=== PATIENT | male | born 1940 | race Caucasian/White ===

== ENCOUNTER 2022-04-11 08:10 | Outpatient (CLI) | payer MEDICARE, OTHER, SELFPAY ==
--- NOTE | 2022-04-11 | USCV_ITS ---
Aung Whyte Age: 81 Gender: M : 1940 Exam Date: 04/11/2022 09:15 Ordering Phys: Bro Adrian MD Technologist: Anant Gomez Exam Location: [facility] Indication: atherosclerotic heart disease BP: 156 / 100 HR: 62 Rhythm: Sinus Technical Quality: Adequate MEASUREMENTS (Male / Female) Normal Values 2D ECHO LV Diastolic Diameter PLAX 5.3 cm 4.2 - 5.9 / 3.9 - 5.3 cm LV Systolic Diameter PLAX 5.1 cm IVS Diastolic Thickness 1.0 cm 0.6 - 1.0 / 0.6 - 0.9 cm IVS Systolic Thickness 1.1 cm LVPW Diastolic Thickness 1.4 cm 0.6 - 1.0 / 0.6 - 0.9 cm LVPW Systolic Thickness 1.4 cm LVOT Diameter 2.0 cm LV Ejection Fraction 2D Teich 10.9 % LV Ejection Fraction MOD 2C 15.5 % LV Ejection Fraction 2C AL 15.3 % LA Diameter 4.8 cm LA Width 3.6 cm LA Height 5.9 cm RA Width 3.3 cm RA Height 5.6 cm Aorta at Sinotubular Diameter 2.4 cm IVC Diameter 2.4 cm M-MODE Aortic Annulus Diameter 3.2 cm LA Ao Ratio MM 1.6 MV E Point Septal Separation 2.8 cm DOPPLER AV Peak Velocity 108.0 cm/s LVOT Peak Velocity 57.0 cm/s AV Area Cont Eq vti 1.3 cm squared AV Area Cont Eq pk 1.7 cm squared MV Peak Velocity 99.0 cm/s MV Area PHT 5.4 cm squared Mitral E to A Ratio 2.9 MV E' Velocity 37.0 cm/s Mitral E to MV E' Ratio 19.0 Mitral E to LV E' Lateral Ratio 16.4 Mitral E to LV E' Septal Ratio 23.1 TR Peak Velocity 357.4 cm/s TR Peak Gradient 51.1 mmHg TR Mean Velocity 245.2 cm/s TR Mean Gradient 26.9 mmHg TR Velocity Time Integral 108.7 cm Right Atrial Pressure 8.0 mmHg Pulmonary Artery Systolic Pressu 59.1 mmHg PV Peak Velocity 61.0 cm/s RV Acceleration Time 0.1 s RV Ejection Time 0.3 s RV AcT/ET 0.2 FINDINGS Left Ventricle Mildly dilated left ventricular size. Severely decreased left ventricular systolic function. Left ventricular ejection fraction is estimated at 20 %. Severe global left ventricular hypokinesis. Abnormal diastolic function (restrictive filling pattern) with severely elevated filling pressures. Right Ventricle Upper normal right ventricular size and mildly decreased systolic function. Right ventricular systolic pressure 66 mmHg. Right Atrium Normal right atrial size. Left Atrium Moderately increased left atrial size. Mitral Valve Moderate mitral annular calcification. Mildly thickened mitral valve. No mitral valve stenosis. Trace mitral valve regurgitation. Aortic Valve Aortic valve not well visualized. No aortic valve stenosis. Mild aortic valve regurgitation. Tricuspid Valve Structurally normal tricuspid valve. Mild tricuspid valve regurgitation. Pulmonic Valve Pulmonic valve not well visualized. No pulmonary valve stenosis. Mild pulmonary valve regurgitation. Pericardium No pericardial effusion. Aorta Normal size aortic root and proximal ascending aorta. IVC Dilated IVC with normal respiratory variation. CONCLUSIONS 1. Mildly dilated left ventricular size. Severely decreased left ventricular systolic function. Left ventricular ejection fraction is estimated at 20 %. Severe global left ventricular hypokinesis. Abnormal diastolic function (restrictive filling pattern) with severely elevated filling pressures. 2. Upper normal right ventricular size and mildly decreased systolic function. 3. Severe pulmonary hypertension with pulmonary pressure estimated at 66 mmHg. 4. Mild aortic and tricuspid valve regurgitation. 5. No prior similar studies to compare. Abigail Jefferson MD (Electronically Signed) Final Date: 11 April 2022 10:35 S
== END 2022-04-11 08:11 | disposition home or self-care (01) ==
LOC: RAD 08:10
PROVIDERS: PCP Family Medicine; Visit Provider Family Medicine
DX: I25.10 Atherosclerotic heart disease of native coronary artery without angina pectoris (principal); I27.20 Pulmonary hypertension, unspecified; I08.2 Rheumatic disorders of both aortic and tricuspid valves
CPT/HCPCS: 93306

== ENCOUNTER 2022-05-22 18:17 | Emergency (ER) | payer MEDICARE, OTHER, SELFPAY ==
[2022-05-22 18:43] VITALS: BP 158/93; PULSE 68; RESP 16; TEMP 35.8; O2SAT 98
[2022-05-22 19:17] LABS: Basophils % 0.1 %; Eosinophils # 0.1 10^3/uL (0.0-0.8); Eosinophils % 1.2 %; Hematocrit 42.6 % (42.0-52.0); Hemoglobin 14.2 g/dL (11.7-16.6); Lymphocytes # 0.9 10^3/uL (0.8-4.8); Lymphocytes % 10.1 %; Mean Corpuscular HGB Conc 33.3 g/dL (30.0-36.0); Mean Corpuscular Hemoglobin 29.8 pg (28.0-34.0); Mean Corpuscular Volume 89.3 fl (80-94); Monocytes # 0.9 10^3/uL (0.2-0.9); Monocytes % 9.4 %; Neutrophils # 7.19 10^3/uL (1.8-7.7); Neutrophils % 78.8 %; Nucleated Red Blood Cells % 0 %; Platelet Count 175 10^3/cmm (130-400); Red Blood Count 4.77 10^6/uL (4.1-5.3); Red Cell Distribution Width 15.4 % (12.1-15.1); White Blood Count 9.1 10^3/uL (4.0-10.0)
[2022-05-22 19:32] LABS: Alanine Aminotransferase 13 U/L (0-41); Albumin Level 3.4 g/dL (3.5-5.2); Alkaline Phosphatase 94 U/L (40-130); Anion Gap 13.6 (5-19); Aspartate Amino Transferase 12 U/L (0-40); Blood Urea Nitrogen 16 mg/dL (8-23); Calcium 9.2 mg/dL (8.5-10.5); Carbon Dioxide 25 mmol/L (22-29); Chloride 104 mmol/L (98-107); Globulin 3.3 g/dL (1.3-4.6); Glucose 140 mg/dL (65-115); Lipase 33 U/L (13-60); Osmolality Calculated 291 mOsm/kg (285-295); Potassium 3.6 mmol/L (3.5-5.1); Sodium 139 mmol/L (136-145); Total Bilirubin 1.4 mg/dL (0.15-1.2); Total Protein 6.7 g/dL (6.6-8.7)
--- NOTE | 2022-05-22 20:59 | W.ED.ABDPA2 ---
HPI - Abdominal Pain General: Chief Complaint: Abdominal Pain Stated Complaint: Hernia Pain Time Seen by Provider: 05/22/22 20:59 History of Present Illness: Mr. Whyte is a 81-year-old gentleman with significant past medical history of heart failure with reduced ejection fraction presenting to the emergency department due to abdominal pain. He reports longstanding history of umbilical/periumbilical hernia which intermittently would be more prominent however was typically easily reduced. Patient notes increased pain and not reducibility over the past 8 hours. Denies specific provoking event. No nausea, vomiting, changes of bowel movements. Denies other signs systemic illness. Intensity symptoms is moderate to severe. Course is worsened. Worse with palpation and movement. No other specific changes in health, exacerbating, or alleviating factors identified. Onset (ago): hour(s) Pain Consistency: constant Location: Periumbilical Severity: moderate Quality: stabbing and aching Radiation: none Exacerbating factors: movement Relieving factors: nothing Context: other Review of Systems General: Reports: 10 or more systems reviewed and unremarkable except in HPI and below PFSH ED PFSH: Medical History (Updated 06/02/22 @ 16:26 by Noe Daniel MD) Essential hypertension Surgical History (Updated 06/02/22 @ 16:26 by oNe Daniel MD) No significant past surgical history Physical Exam Const: COMMON NORMALS: alert GENERAL APPEARANCE: cooperative and well developed HENMT: COMMON NORMALS: normocephalic and atraumatic HEAD & SCALP: normocephalic and atraumatic Eye: COMMON NORMALS: conjunctivae normal CONJUNCTIVA: Yes conjunctivae normal SCLERA: sclerae normal Neck/C-Spine: COMMON NORMALS: supple GENERAL: Yes trachea midline Resp: COMMON NORMALS: normal respiratory effort EFFORT & INSPECTION: Yes able to speak in complete sentences Cardio: COMMON NORMALS: regular rate and regular rhythm RATE: regular rate RHYTHM: regular rhythm GI: COMMON NORMALS: Soft to palpation PALPATION: Yes Soft to palpation and Yes Tenderness to palpation present (GI) OTHER: Palpable supraumbilical hernia which is tender to palpation and firm. Extremity: GENERAL: Yes normal exam except as noted and No edema Neuro: COMMON NORMALS: moves all extremities SENSORIUM/ORIENTATION: Yes alert and No Orientation impaired Psych: COMMON NORMALS: mental status grossly normal and Normal thought process present THOUGHT PROCESS: Normal thought process present Course Vital Signs: Vital signs: Vital Signs Temperature 96.5 F L 05/22/22 18:43 Pulse Rate 63 05/22/22 22:38 Respiratory Rate 17 05/22/22 22:36 Blood Pressure 164/99 05/22/22 22:38 Pulse Oximetry 94 05/22/22 22:38 Oxygen Delivery Me thod 05/22/22 22:38 MDM - Abdominal Pain Medical Decision Making 81-year-old gentleman with known history of umbilical hernia presenting with non reducibility and increased pain. No changes in bowel movements or nausea and vomiting. Patient is nontoxic on exam. Labs without significant abnormality. EKG demonstrates supraumbilical ventral hernia with small bowel without evidence of strangulation or perforation. Volume overload noted. Patient improved with analgesia and umbilical hernia was successfully reduced. He was placed in a abdominal binder and will be referred for follow-up. The results of ED evaluation were discussed with the patient including prescriptions and/or symptomatic cares (if applicable) including appropriate and responsible use, followup plan, and return precautions. The patient verbalized understanding and felt safe for discharge. Medical Records I reviewed the patient's medical records. Lab Data I reviewed the patient's lab results. 05/22/22 19:00 05/22/22 19:00 Labs/Radiology: Radiology Impressions Abdomen/Pelvis CT 05/22/22 21:14 IMPRESSION: 1. Supraumbilical ventral hernia containing small bowel with low-grade small bowel obstruction. No evidence of strangulation or perforation. 2. Ascites and pleural effusions. 3. Severe prostate hypertrophy. 4. Other chronic findings as described COMMENTS: Consistent with the [employer]'s Incidental Findings Committee white paper (J Am Connor Radiol 2018): Any incidental renal lesion less than 1 cm or classified as too small to characterize, or any incidental cystic renal lesion characterized as simple-appearing, is likely benign. No follow-up imaging is recommended for these lesions per consensus recommendations based on imaging criteria. Laboratory Results WBC 9.1 10^3/uL (4.0-10.0) 05/22/22 19:00 RBC 4.77 10^6/uL (4.1-5.3) 05/22/22 19:00 Hgb 14.2 g/dL (11.7-16.6) 05/22/22 19:00 Hct 42.6 % (42.0-52.0) 05/22/22 19:00 MCV 89.3 fl (80-94) 05/22/22 19:00 MCH 29.8 pg (28.0-34.0) 05/22/22 19:00 MCHC 33.3 g/dL (30.0-36.0) 05/22/22 19:00 RDW 15.4 % (12.1-15.1) H 05/22/22 19:00 Plt Count 175 10^3/cmm (130-400) 05/22/22 19:00 MPV 10.0 fL (7.4-10.4) 05/22/22 19:00 Neut % (Auto) 78.8 % 05/22/22 19:00 Lymph % (Auto) 10.1 % 05/22/22 19:00 [place] % (Auto) 9.4 % 05/22/22 19:00 Eos % (Auto) 1.2 % 05/22/22 19:00 Baso % (Auto) 0.1 % 05/22/22 19:00 Neut # (Auto) 7.19 10^3/uL (1.8-7.7) 05/22/22 19:00 Lymph # (Auto) 0.9 10^3/uL (0.8-4.8) 05/22/22 19:00 [place] # (Auto) 0.9 10^3/uL (0.2-0.9) 05/22/22 19:00 Eos # (Auto) 0.1 10^3/uL (0.0-0.8) 05/22/22 19:00 Baso # (Auto) 0.0 10^3/uL (0.0-0.1) 05/22/22 19:00 Nucleated RBC % (auto) 0 % 05/22/22 19:00 Nucleated RBCs # 0.0 /100WBC 05/22/22 19:00 Sodium 139 mmol/L (136-145) 05/22/22 19:00 Potassium 3.6 mmol/L (3.5-5.1) 05/22/22 19:00 Chloride 104 mmol/L (98-107) 05/22/22 19:00 Carbon Dioxide 25 mmol/L (22-29) 05/22/22 19:00 Anion Gap 13.6 (5-19) 05/22/22 19:00 BUN 16 mg/dL (8-23) 05/22/22 19:00 Creatinine 0.9 mg/dL (0.7-1.2) 05/22/22 19:00 GFR Calculation Not Reportable 05/22/22 19:00 Glucose 140 mg/dL (65-115) H 05/22/22 19:00 Calculated Osmolality 291 mOsm/kg (285-295) 05/22/22 19:00 Lactic Acid 1.5 mmol/L (0.5-2.2) 05/22/22 21:48 Calcium 9.2 mg/dL (8.5-10.5) 05/22/22 19:00 Total Bilirubin 1.4 mg/dL (0.15-1.2) H 05/22/22 19:00 AST 12 U/L (0-40) 05/22/22 19:00 ALT 13 U/L (0-41) 05/22/22 19:00 Alkaline Phosphatase 94 U/L (40-130) 05/22/22 19:00 Total Protein 6.7 g/dL (6.6-8.7) 05/22/22 19:00 Albumin 3.4 g/dL (3.5-5.2) L 05/22/22 19:00 Globulin 3.3 g/dL (1.3-4.6) 05/22/22 19:00 Lipase 33 U/L (13-60) 05/22/22 19:00 Discharge Plan Discharge Patient Disposition: Home Clinical Impression: Supraumbilical hernia, Pleural effusion Condition: Stable Prescriptions: No Action aspirin 81 mg tablet,delayed release (DR/EC) 81 mg PO DAILY furosemide 20 mg tablet 20 mg PO QAM tamsulosin 0.4 mg capsule 0.4 mg PO DAILY hydroxyzine HCl 25 mg tablet 25 mg PO .hs Qty: 90 3RF Discharge Orders: Discharge ED (Routine); Ordered 05/23/22 Ordered By: Noe Daniel Referrals: Bro Adrian MD [Primary Care Provider] - Discharge Diet: Advance as tolerated and Clear Liquid Discharge Activity: Increase activity as tolerated Patient Instructions: Umbilical Hernia (ED), Pain Management Activity Restrictions/Additional Instructions: Thank you for visiting the emergency department. You were seen evaluated for abdominal pain. You are found to have a supraumbilical hernia which was reduced successfully at bedside. The small amount of partial obstruction due to this hernia will likely improve now that it is reduced. I will message case management for follow-up with general surgery. Please also follow-up with your primary care provider. Return to the emergency department for abdominal pain, changes in bowel habits, nausea or vomiting, fevers, changes as listed on handout, or anything else that you are concerned about a feel needs emergency department evaluation. Coding Level of Care Code ED [employer] for Deondre Krishnamurthy
--- NOTE | 2022-05-22 21:14 | CTR_ITS ---
PROCEDURE INFORMATION: Exam: CT Abdomen And Pelvis With Contrast Exam date and time: 05/22/2022 9:54 PM Age: 81 years old Clinical indication: Abdominal pain; Periumbilical; Patient HX: C/O worsening pain to periumbilcal hernia. ; Additional info: Hernia, painful and no longer reducible TECHNIQUE: Imaging protocol: Computed tomography of the abdomen and pelvis with contrast. Radiation optimization: All CT scans at this facility use at least one of these dose optimization techniques: automated exposure control; mA and/or kV adjustment per patient size (includes targeted exams where dose is matched to clinical indication); or iterative reconstruction. Contrast material: OMNI 350; Contrast volume: 100 ml; Contrast route: INTRAVENOUS (IV); COMPARISON: No relevant prior studies available. RADIATION DOSE METRICS: Total DLP (mGy-cm): 502.83 FINDINGS: Pleural spaces: Bilateral pleural effusions are moderate on the left and small on the right along with bibasilar atelectasis and interstitial edema. Liver: Normal. No mass. Gallbladder and bile ducts: Normal. No calcified stones. No ductal dilation. Pancreas: Normal. No ductal dilation. Spleen: Normal. No splenomegaly. Adrenal glands: Normal. No mass. Kidneys and ureters: 5.5 cm simple right renal cyst. Additional smaller simple right renal cyst and at least 1 small nonobstructing intrarenal calculus. Stomach and bowel: Scattered diverticula throughout the colon without acute inflammation. Appendix: No evidence of appendicitis. Intraperitoneal space: Small ascites in all 4 quadrants. Vasculature: Small infrarenal aortic aneurysm measures 3.3 cm. No hemorrhage. Lymph nodes: Unremarkable. No enlarged lymph nodes. Urinary bladder: See Reproductive finding. Reproductive: The prostate is significantly enlarged up to 8 cm and invades into the urinary bladder. There is mild to moderate urinary bladder distention. Bones/joints: Multilevel chronic degenerative changes throughout the lumbar spine. Advanced right hip osteoarthritis. Soft tissues: 6.3 cm umbilical hernia contains a loop of small bowel and ascites. The more proximal small bowel is slightly larger in caliber than more distally indicating a low-grade obstruction. No pneumatosis or evidence of strangulation. Other findings: Chronic mediastinal postop changes. CT/CT abdomen pelvis w con* [id number] IMPRESSION: 1. Supraumbilical ventral hernia containing small bowel with low-grade small bowel obstruction. No evidence of strangulation or perforation. 2. Ascites and pleural effusions. 3. Severe prostate hypertrophy. 4. Other chronic findings as described COMMENTS: Consistent with the [employer]'s Incidental Findings Committee white paper (J Am Connor Radiol 2018): Any incidental renal lesion less than 1 cm or classified as too small to characterize, or any incidental cystic renal lesion characterized as simple-appearing, is likely benign. No follow-up imaging is recommended for these lesions per consensus recommendations based on imaging criteria.
[2022-05-22 21:43] VITALS: RESP 20
[2022-05-22] MEDS: morphine 4 mg/mL SDV 1 mL IVP ×2 (21:43→22:36)
[2022-05-22 21:47] VITALS: BP 174/97; PULSE 64; O2SAT 95
[2022-05-22] MEDS: iohexol 350 mg/mL 500 mL Btl (per mL) IV (22:00)
[2022-05-22 22:30] LABS: Lactic Sepsis W/Reflex 1.5 mmol/L (0.5-2.2)
[2022-05-22 22:36] VITALS: RESP 17
[2022-05-22] MEDS: ondansetron 2 mg/ML SDV 2 mL 4 MG IVP (22:37)
[2022-05-22 22:38] VITALS: BP 164/99; PULSE 63; O2SAT 94
--- NOTE | 2022-05-23 11:51 | DCPLANNER ---
Addendum entered by Nathalie Bess 06/22/22 11:29: Patient had a follow up appointment scheduled with general surgery - patient did attend appointment. Addendum entered by Nathalie Bess 05/24/22 11:57: Patient has an appointment scheduled for Saturday, June 13, 2022 at 3:[address] Christian at general surgery. Clinic will call patient with appointment information. Original Note: radio station manager had message to schedule a follow up appointment for patient with general surgery. radio station manager sent patients information to the front office staff at general surgery. Patients information will be printed and reviewed. Clinic will call patient with appointment information.
== END 2022-05-23 00:51 | disposition home or self-care (01) ==
PROVIDERS: Emergency Medicine; Emergency Provider Emergency Medicine; PCP Family Medicine
DX: K43.9 Ventral hernia without obstruction or gangrene (principal); J90 Pleural effusion, not elsewhere classified; Z79.82 Long term (current) use of aspirin; I10 Essential (primary) hypertension
CPT/HCPCS: 36415; 74177; 80053; 83605; 83690; 85025; 96374; 96375; 96376; 99285; J2270; J2405; Q9967

== ENCOUNTER → 2022-06-13 14:54 | Outpatient (BNVA) | payer MEDICARE, OTHER, SELFPAY | PROVIDERS: PCP Family Medicine; Visit Provider Surgery | DX: K42.9 Umbilical hernia without obstruction or gangrene (principal) | CPT/HCPCS: 99203 ==

== ENCOUNTER → 2022-06-20 12:09 | Outpatient (BNVA) | payer MEDICARE, OTHER, SELFPAY | PROVIDERS: PCP Family Medicine; Visit Provider Internal Medicine | DX: Z01.818 Encounter for other preprocedural examination (principal); I11.0 Hypertensive heart disease with heart failure; I50.20 Unspecified systolic (congestive) heart failure; I25.10 Atherosclerotic heart disease of native coronary artery without angina pectoris; Z95.1 Presence of aortocoronary bypass graft; F17.200 Nicotine dependence, unspecified, uncomplicated | CPT/HCPCS: 99204 ==

== ENCOUNTER 2022-06-25 08:43 | Outpatient (CLI) | payer MEDICARE, OTHER, SELFPAY ==
--- NOTE | 2022-06-25 | ECG_ITS ---
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 Interpretive Statements NAME OF STUDY: LEXISCAN SESTAMIBI STRESS TEST INDICATION: Chest Pain/ shortness of breath PROCEDURE: At the baseline, the blood pressure was 147/85 mm Hg with a heart rate of 80 bpm. The electrocardiogram showed sinus rhythm, normal axis with Poor anterior R wave progression. Non specific ST-T wave changes. The Lexiscan was infused over a period of 20 seconds. A total of 0.4 milligrams of Lexiscan was infused. The stress phase was continued for a total of 5 minutes. Heart rate at the end of the stress phase was 82 bpm with a blood pressure of 151/90 mm Hg. The EKG at the peak infusion revealed no significant ST-T wave changes. Sestamibi was injected 20 seconds after the Lexiscan infusion. Blood pressure at the end of the recovery phase was 134/91 mm Hg with a heart rate of 81 beats per minute. CONCLUSION: 1. No significant EKG changes with the LexiScan infusion. 2. No LexiScan induced chest pain or cardiac arrhythmia. 3. Normal blood pressure and heart rate response. 4. Sestamibi/sestamibi perfusion scan pending; see separate report. Electronically Signed On 07-10-2022 12:49:19 VFX ARTIST by Abigail Jefferson M.D. [id number]
[2022-06-25 09:06] VITALS: BMI 26.6
--- NOTE | 2022-06-25 09:07 | NMCV_ITS ---
NM rubin perf SPECT r/s* [id number] Aung Whyte Age: 81 Gender: M : 1940 Exam Date: 06/25/2022 10:19 Ordering Phys: Dony Pringle M.D ([email or web address]) Technologist: GIOVANNY Joaquin Exam Location: [facility] Indications: CHEST PAIN STRESS TEST [facility] IMAGE PROTOCOL Rest/Stress 1 Lexiscan Day Radiopharmaceutical Dose (mCi) Administration Site Administered by Rest: Tc-99m 10.7 IV GIOVANNY Bowen Sestamibi Stress:Tc-99m 32.7 IV GIOVANNY Joaquin Sestamiciara Rest: 25-Jun-2022 60 Discovery 630 Stress: 25-Jun-2022 30 Discovery 630 0.4mg Lexiscan. Supine position only as patient was unable to lay prone. SPECT RESULTS Technical Quality: Excellent Raw Data Analysis: Normal Image Corrections: No attenuation or motion correction applied Summed Stress Score: 27 Summed Rest Score: 30 Summed Difference Score: 0 PERFUSION FINDINGS There is a large sized, mostly fixed perfusion defect noted in apical, apical anterior, anterior, inferior and inferolateral sandoval. Minimal lucas-infarct ischemia seen in inferior and anterior sandoval. FUNCTIONAL RESULTS (calculated via Gated SPECT) Stress Image LV EF (%): 29 Stress EDV (mL):243 TID: 1.08 Stress ESV (mL):173 FUNCTIONAL FINDINGS: LV systolic function is severely reduced with EF of 29%. IMPRESSIONS 1. 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 Minimal lucas-infarct ischemia seen in LAD and RCA territory. 2. LV systolic function is severely reduced with EF of 29%. Dony Pringle MD (Electronically Signed) Final Date: 27 June 2022 10:07 S
[2022-06-25] MEDS: regadenoson 0.4 Mg/5 ml Syringe IVP (11:59)
[2022-06-25 12:01] VITALS: BP 134/91; PULSE 81
== END 2022-06-25 08:44 | disposition home or self-care (01) ==
LOC: CDL 08:46
PROVIDERS: PCP Family Medicine; Visit Provider Internal Medicine
DX: R07.9 Chest pain, unspecified (principal); R06.02 Shortness of breath; I25.9 Chronic ischemic heart disease, unspecified
CPT/HCPCS: 36415; 78452; 93017; 96374; A9500; J2785

== ENCOUNTER 2022-07-09 05:31 | Day surgery (SDC) | payer MEDICARE, OTHER, SELFPAY ==
[2022-07-06 12:33] VITALS: BMI 27.4
[2022-07-09] VITALS (9 sets, daily range): BP systolic 123–146; BP diastolic 64–84; PULSE 68–72; RESP 16–20; TEMP 36.1–36.6; O2SAT 90–99
[2022-07-09] MEDS: sodium chloride 0.9% 1,000 ML 30 ML IV (06:10)
--- NOTE | 2022-07-09 06:44 | ANES.PREANE2 ---
Pre-Anesthetic Assessment Height/Weight: Height 1.63 m Weight 72.575 kg Temp Pulse Resp BP Pulse Ox O2 Del Method 97.6 F 71 18 124/75 95 07/09/22 06:03 07/09/22 06:03 07/09/22 06:03 07/09/22 06:03 07/09/22 06:03 07/09/22 06:03 Preop Diagnosis: umbilical hernia Operation Date: 07/09/22 07:00 Proposed Procedures p lap umbilical hernia repair w/mesh 81132,K42.9(Not Applicable) - Marty Christian DO Familial anesthetic complications: None Was Beta Herminio taken within 24 hours: Yes Was Clonidine taken within 24 hours: N/A Last intake: Intake Last Liquid Date 07/08/22 Last Liquid Time 16:00 Last Solid Date 07/08/22 Last Solid Time 16:00 Social Tobacco and No alcohol Exam alert, oriented x 3, clear to auscultation bilaterally and regular rate & rhythm Airway Mallampati: Class III Dentition: full Pulmonary Exertional Dyspnea and Shortness of Breath CV/HEM Coronary Artery Disease (OR s/p CABG), Congestive Heart Failure (EF 20%) and Hypertension EF 20- 29%, lucas-infarct ischemia s/p CABG on perfusion scan. Minimal ischemia per discussion with Dr. Pringle and optimized on current medications. Informed patient of elevated cardiac risk d/t prior history and EF GI umbilical hernia Anesthetic Plan ASA status: 4 Anesthesia: General Risk of > 500 ml blood loss (7ml/kg in children): No Medications/Allergies Home Medications Medication Instructions Recorded Confirmed Last Taken Type aspirin 81 mg tablet,delayed 81 mg PO DAILY 04/10/22 07/09/22 07/04/22 History release furosemide 20 mg tablet 20 mg PO QAM 04/10/22 07/09/22 07/08/22 History hydroxyzine HCl 25 mg tablet 25 mg PO .hs itching #90 tabs 04/10/22 07/09/22 07/08/22 Rx tamsulosin 0.4 mg capsule 0.4 mg PO DAILY 04/10/22 07/09/22 07/08/22 History carvedilol 25 mg tablet 25 mg PO BID 06/20/22 07/09/22 07/09/22 History potassium chloride 20 mEq 20 meq PO DAILY 06/20/22 07/09/22 07/08/22 History tablet,extended release(part/cryst) Allergies Allergy/AdvReac Type Severity Reaction Status Date / Time No Known Allergies Allergy Verified 07/09/22 06:01 Current Medications Generic Name Dose Route Start Last Admin Trade Name Freq PRN Reason Stop Dose Admin Sodium Chloride 1,000 mls @ 30 mls/hr 07/09/22 06:00 07/09/22 06:10 Sodium Chloride 0.9% IV 07/10/22 05:59 30 mls/hr .Q24H JE Administration PFSH Anesthesia Medical History (Updated 06/20/22 @ 14:01 by Dony Pringle M.D) Essential hypertension Surgical History (Updated 06/20/22 @ 14:01 by Dony Pringle M.D) Hx of heart bypass surgery No significant past surgical history Social History Smoking and tobacco status: current some day smoker Alcohol intake: never Data Anesthesia Cardiac Studies: Echocardiogram 04/11/22 Sestamibi Stress Test (Cardiology) 06/25/22
--- NOTE | 2022-07-09 07:00 | W.PM.OPSUD ---
Surgery/Procedure H&P Update DATE OF PROCEDURE: July 09, 2022 DATE H&P PERFORMED: 06/13/23 PREOP DIAGNOSIS: umbilical hernia PLANNED PROCEDURE: Operation Date: 07/09/22 07:00 Proposed Procedures p lap umbilical hernia repair w/mesh 88421,K42.9(Not Applicable) - Marty Christian DO
[2022-07-09] MEDS: ceFAZolin 2,000 MG in sodium chloride 0.9% (plus) 50 ML 100 MG IV (07:11)
[2022-07-09] MEDS: HYDROcodone-acetaminophen 7.5-325 mg Tablet 1 TAB PO (08:56)
--- NOTE | 2022-07-09 09:13 | PC.NURSE ---
dressing pt. while sitting on the bed. pt fell backwards and bumped head on wall. pt states i'm fine .spouse states he does this all the time. no bump noted.
--- NOTE | 2022-07-09 13:11 | PM.OP ---
Operative Report Date of procedure: July 09, 2022 Pre-op diagnosis: Preop Diagnosis umbilical hernia Post-op diagnosis: same Procedure done: Laparoscopic repair of umbilical hernia with mesh Implants: 11 cm ventralight mesh Specimens removed/disposition: Hernia sac Surgeon: Dr. Marty Christian DO Anesthesia: General Estimated blood loss (mL): 5 Complications: None apparent Brief History: This very pleasant 81-year-old gentleman with an umbilical hernia. Laparoscopic repair with mesh was indicated. The risks and benefits were explained and documented. Procedure: Patient was wheeled into the operative room and placed on the OR table in a supine position. Abdomen was inspected prepped and draped in usual sterile fashion. Time-out was performed and all present were in agreement. A 15 blade scalp was used to make a 5 millimeter incision left upper quadrant. A Veress needle was placed into the incision and intra-abdominal insufflation was brought to 15 millimeters of mercury. A 12 millimeter trocar was placed into the left lower quadrant. An umbilical hernia was identified and measured 1 cm in diameter. The energy but device was then used to cut out the hernia sac. An 11 cm ventralight mesh was placed into the abdomen and brought up through the umbilicus using an the Dominguez-Stacey. The mesh was then tacked in place in a double crown fashion. The skeleton of the mesh was removed via the left lower quadrant. The hernia sac was then removed from the abdomen via the left lower quadrant. The left lower quadrant port site was closed with an 0 Vicryl suture in a Dominguez-Stacey in a [id number] fashion. Incisions were closed with 4 O Monocryl in a subcuticular interrupted fashion. Skin glue was applied. A dressing that included cotton balls and a Tegaderm was placed over the umbilicus. Patient tolerated the procedure well.
--- NOTE | 2022-07-09 16:25 | ANE.PACU2 ---
Inpatient post-anesthesia follow up: Airway intact: Yes Vital signs: Temperature 97 F Pulse Rate 68 Respiratory Rate 18 Blood Pressure 146/78 Pulse Oximetry 98 Oxygen Delivery Me thod Room Air Oxygen Flow Rate 2 Fraction of Inspir ed Oxygen Hydration adequate: Yes Nausea and vomiting: No Pain level: 1 Mental status: Baseline
== END 2022-07-09 09:19 | disposition home or self-care (01) ==
PROVIDERS: PCP Family Medicine; Visit Provider Surgery
PROC: 0WQF4ZZ Repair Abdominal Wall, Percutaneous Endoscopic Approach (ICD-10-PCS; CPT 49591; principal; 2022-07-09 07:00)
DX: K42.9 Umbilical hernia without obstruction or gangrene (principal); I25.10 Atherosclerotic heart disease of native coronary artery without angina pectoris; I25.2 Old myocardial infarction; Z95.1 Presence of aortocoronary bypass graft; I11.0 Hypertensive heart disease with heart failure; I50.9 Heart failure, unspecified
CPT/HCPCS: 49591; 88302; C1781; J0690; J1100; J2405; J2704; J2710; J3010; J3490; J7030

== ENCOUNTER 2022-07-26 12:46 | Emergency (ER) | payer MEDICARE, OTHER, SELFPAY ==
[2022-07-26] VITALS (22 sets, daily range): BP systolic 146–167; BP diastolic 88–100; PULSE 73–79; RESP 14–28; TEMP 36.4; O2SAT 96–100; BMI 27.4
--- NOTE | 2022-07-26 12:58 | CT_ITS ---
WS: [id number] CT HEAD TECHNIQUE: Noncontrast CT of the head obtained from the skullbase to the vertex. CLINICAL INFORMATION: CVA COMPARISON: None. DLP: 1159.[address] scans at [facility] use at least one of these dose optimization techniques: automated e xposure control; mA and/or kV adjustment per patient size (includes targeted exams where dose is matc hed to clinical indication); or iterative reconstruction. FINDINGS: No evidence of intracranial hemorrhage or mass effect. Ventricular system and basal cisterns are torres nt. Moderate small vessel changes with moderate parenchymal volume loss. No extra-axial fluid collect ions. No evidence of mass or mass effect. Mild mucosal thickening ethmoid air cells. Mucosal thickening RIGHT mastoid tip. Normal posterior blas opharynx. Vascular calcification. CT/CT head wo con* [id number] IMPRESSION: 1. No evidence of intracranial hemorrhage or mass effect. 2. Moderate small vessel changes with moderate parenchymal volume loss. 3. Intracranial vascular calcification. 4. No acute intracranial findings.
--- NOTE | 2022-07-26 13:13 | W.ED.FALL ---
HPI - Fall General: Chief Complaint: Fall Stated Complaint: FALLS/ STROKE LIKE SYMPTOMS Time Seen by Provider: 07/26/22 12:58 Source: patient Mode of arrival: EMS History of Present Illness: 81-year-old male brought into the emergency room over the last 5 days had increasing falls. His states that strokelike symptoms. She bases that mostly off of his falls and weakness. He denies any difficulty speaking, vision or swallowing. No chest pain. He denies a problem with vision he has no focal neurologic deficits. He is awake and alert he states he is just tired feels better to just sit and rest when he feels weak when he gets up and tries to walk. No recent fever sweats chills shortness of breath or cough complaint: fall Onset (ago): week(s) Fall from: standing Associated symptoms-after fall: Reports confusion, difficulty walking and weakness; Denies abdominal pain, chest pain, headache(s), hematuria, lightheadedness, neck pain, numbness, short of breath or vertigo Review of Systems Const: Denies: fever(s), chills, body aches, change in appetite, fatigue or malaise ENMT: Denies: throat pain, ear or mastoid pain, nasal discharge or nasal congestion Card: Denies: chest pain or lightheadedness Resp: Denies: dyspnea, productive cough or non-productive cough GI: Denies: abdominal pain, nausea or vomiting : Denies: dysuria, urinary frequency, urinary urgency or hematuria Musc: Denies: neck pain or back pain Skin/Breast: Denies: rash or pruritus Neuro: Reports: difficulty walking and confusion; Denies: headache(s) or vertigo PFSH ED PFSH: Medical History Essential hypertension Surgical History Hx of heart bypass surgery No significant past surgical history Social History Smoking and tobacco status: current some day smoker Alcohol intake: never Physical Exam Const: COMMON NORMALS: no acute distress GENERAL APPEARANCE: cooperative and comfortable ORIENTATION/CONSCIOUSNESS: Yes awake, Yes oriented to person, Yes oriented to place and Yes oriented to time HENMT: COMMON NORMALS: normocephalic, atraumatic, hearing grossly normal bilaterally, external ears normal, EAC's normal, TM's normal bilaterally, Normal nasal mucous membranes and turbinates present, moist oral mucous membranes and oropharynx normal HEAD & SCALP: normocephalic and atraumatic NOSE: Normal nasal mucous membranes and turbinates present EXTERNAL EAR: Yes external ears normal EXTERNAL AUDITORY CANAL: EAC's normal TYMPANIC MEMBRANE: TM's normal bilaterally Eye: COMMON NORMALS: Equal, round and reactive pupils present, EOMs intact bilaterally, conjunctivae normal and no scleral icterus CONJUNCTIVA: Yes conjunctivae normal PUPIL: Yes Equal, round and reactive pupils present Neck/C-Spine: COMMON NORMALS: full ROM, no lymphadenopathy, supple and no JVD Resp: COMMON NORMALS: normal respiratory effort, No retractions, No use of accessory muscles and clear to auscultation bilaterally AUSCULTATION: clear to auscultation bilaterally Cardio: COMMON NORMALS: no JVD, regular rate, regular rhythm and No murmurs present (Cardio) RATE: regular rate RHYTHM: regular rhythm GI: COMMON NORMALS: Soft to palpation and No hepatosplenomegaly present AUSCULTATION: Yes normoactive bowel sounds PALPATION: Yes Soft to palpation, No Tenderness to palpation present (GI), No Guarding due to palpation present (GI) and Yes No hepatosplenomegaly present Extremity: COMMON NORMALS: normal to inspection, capillary refill normal, no clubbing, cyanosis or edema, no calf tenderness and no pedal edema Neuro: SENSORIUM/ORIENTATION: Yes oriented to person, Yes oriented to place and Yes oriented to time Skin: COMMON NORMALS: no rashes or lesions noted GENERAL SKIN EXAM: no rashes or lesions noted Course Vital Signs: Vital signs: Vital Signs Temperature 97.5 F L 07/26/22 12:59 Pulse Rate 74 07/26/22 13:35 Respiratory Rate 21 H 07/26/22 13:35 Blood Pressure 161/88 07/26/22 14:45 Pulse Oximetry 97 07/26/22 14:45 Oxygen Delivery Me thod 07/26/22 12:59 MDM - Fall Medical Decision Making Patient reporting a fall and is no fracture at this time she had increased falls the last several days. Patient ambulated to the cot in the field for EMS and was able to ambulate here as well. He is stroke score in the ER is 0. I am not finding any specific signs or symptoms of stroke. He has mildly elevated blood pressure but would not recommend aggressive treatment at this time. Should follow-up with his primary care doctor. We will have him continue his aspirin and add atorvastatin. His states she is having difficult time handling him. Discussed possible need for higher level of care she is in agreement. Medical Records I reviewed the patient's medical records. Lab Data I reviewed the patient's lab results. 07/26/22 13:08 07/26/22 13:[address] 07/26/22 12:58 IMPRESSION: 1. No evidence of intracranial hemorrhage or mass effect. 2. Moderate small vessel changes with moderate parenchymal volume loss. 3. Intracranial vascular calcification. 4. No acute intracranial findings. Laboratory Results WBC 6.9 10^3/uL (4.0-10.0) 07/26/22 13:08 RBC 4.67 10^6/uL (4.1-5.3) 07/26/22 13:08 Hgb 13.8 g/dL (11.7-16.6) 07/26/22 13:08 Hct 41.2 % (42.0-52.0) L 07/26/22 13:08 MCV 88.2 fl (80-94) 07/26/22 13:08 MCH 29.6 pg (28.0-34.0) 07/26/22 13:08 MCHC 33.5 g/dL (30.0-36.0) 07/26/22 13:08 RDW 14.9 % (12.1-15.1) 07/26/22 13:08 Plt Count 175 10^3/cmm (130-400) 07/26/22 13:08 MPV 10.0 fL (7.4-10.4) 07/26/22 13:08 Neut % (Auto) 49.7 % 07/26/22 13:08 Lymph % (Auto) 25.1 % 07/26/22 13:08 Gosper % (Auto) 11.7 % 07/26/22 13:08 Eos % (Auto) 12.4 % 07/26/22 13:08 Baso % (Auto) 0.7 % 07/26/22 13:08 Neut # (Auto) 3.44 10^3/uL (1.8-7.7) 07/26/22 13:08 Lymph # (Auto) 1.7 10^3/uL (0.8-4.8) 07/26/22 13:08 [place]per # (Auto) 0.8 10^3/uL (0.2-0.9) 07/26/22 13:08 Eos # (Auto) 0.9 10^3/uL (0.0-0.8) H 07/26/22 13:08 Baso # (Auto) 0.1 10^3/uL (0.0-0.1) 07/26/22 13:08 Nucleated RBC % (auto) 0 % 07/26/22 13:08 Nucleated RBCs # 0.0 /100WBC 07/26/22 13:08 Sodium 135 mmol/L (136-145) L 07/26/22 13:08 Potassium 4.2 mmol/L (3.5-5.1) 07/26/22 13:08 Chloride 100 mmol/L (98-107) 07/26/22 13:08 Carbon Dioxide 26 mmol/L (22-29) 07/26/22 13:08 Anion Gap 13.2 (5-19) 07/26/22 13:08 BUN 18 mg/dL (8-23) 07/26/22 13:08 Creatinine 1.0 mg/dL (0.7-1.2) 07/26/22 13:08 GFR Calculation Not Reportable 07/26/22 13:08 Glucose 96 mg/dL (65-115) 07/26/22 13:08 Calculated Osmolality 282 mOsm/kg (285-295) L 07/26/22 13:08 Calcium 9.2 mg/dL (8.5-10.5) 07/26/22 13:08 Total Bilirubin 0.5 mg/dL (0.15-1.2) 07/26/22 13:08 AST 20 U/L (0-40) 07/26/22 13:08 ALT 17 U/L (0-41) 07/26/22 13:08 Alkaline Phosphatase 91 U/L (40-130) 07/26/22 13:08 Total Protein 6.5 g/dL (6.6-8.7) L 07/26/22 13:08 Albumin 3.5 g/dL (3.5-5.2) 07/26/22 13:08 Globulin 3.0 g/dL (1.3-4.6) 07/26/22 13:08 Discharge Plan Discharge Patient Disposition: Home Clinical Impression: Transient ischemic attack (TIA), Essential hypertension Condition: Stable Prescriptions: New atorvastatin 40 mg tablet 40 mg PO DAILY Qty: 30 0RF No Action potassium chloride 20 mEq tablet,ER particles/crystals 20 meq PO QAM aspirin 81 mg tablet,delayed release (DR/EC) 81 mg PO QAM tamsulosin 0.4 mg capsule 0.4 mg PO DAILY Hold Instructions: Resume on 08/03/22. pyridostigmine bromide 60 mg Tablet 30 mg PO BID Qty: 60 2RF furosemide 40 mg tablet 40 mg PO QAM hydroxyzine HCl 25 mg tablet 25 mg PO BEDTIME multivitamin Tablet 1 tab PO DAILY acetaminophen 500 mg Tablet 1,000 mg PO Q6H PRN (Reason: Pain) Discharge Orders: Discharge ED (Routine); Ordered 07/26/22 Ordered By: Luís Ledbetter Referrals: Bro Adrian MD [Primary Care Provider] - Discharge Diet: Usual diet Discharge Activity: Increase activity as tolerated Patient Instructions: Opioid Safety, Pain Management Activity Restrictions/Additional Instructions: Your evaluation today did not show any signs of acute stroke. Your description of symptoms may indicate you are having TIAs. Case management make arrangements for have an outpatient carotid duplex, Echocardiogram, and MRI of the head. Recommend that you start taking atorvastatin 40 mg daily and clopidogrel once daily. Follow-up with your primary care doctor return if you have further problems. Coding Level of Care Code ED Technical Solutions Director for Deondre Krishnamurthy NIH stroke score NIHSS Level Of Consciousness - 1a: 0 Level Of Consciousness Questions - 1b: Both Correct Level Of Consciousness Commands - 1c: Both Correct Best Gaze - 2: Normal Visual Devine - 3: No Visual Loss Facial Palsy - 4: Normal Motor Arm Right - 5: No Drift Motor Arm Left - 5: No Drift Motor Leg Right - 6: No Drift Motor Leg Left - 6: No Drift Limb Ataxia - 7: Absent Sensory - 8: Normal Best Language - 9: No Aphasia Dysarthia - 10: Normal Extinction And Inattention - 11: 0 Score Total Score: 0
[2022-07-26 13:24] LABS: Basophils # 0.1 10^3/uL (0.0-0.1); Basophils % 0.7 %; Eosinophils # 0.9 10^3/uL (0.0-0.8); Eosinophils % 12.4 %; Hematocrit 41.2 % (42.0-52.0); Hemoglobin 13.8 g/dL (11.7-16.6); Lymphocytes # 1.7 10^3/uL (0.8-4.8); Lymphocytes % 25.1 %; Mean Corpuscular HGB Conc 33.5 g/dL (30.0-36.0); Mean Corpuscular Hemoglobin 29.6 pg (28.0-34.0); Mean Corpuscular Volume 88.2 fl (80-94); Monocytes # 0.8 10^3/uL (0.2-0.9); Monocytes % 11.7 %; Neutrophils # 3.44 10^3/uL (1.8-7.7); Neutrophils % 49.7 %; Nucleated Red Blood Cells % 0 %; Platelet Count 175 10^3/cmm (130-400); Red Blood Count 4.67 10^6/uL (4.1-5.3); Red Cell Distribution Width 14.9 % (12.1-15.1); White Blood Count 6.9 10^3/uL (4.0-10.0)
--- NOTE | 2022-07-26 13:34 | ECG_ITS ---
[facility] Test Date: 2022-07-26 Pat Name: Aung Whyte Department: Room: Gender: Male Telephoner: : 1940 Requested By: Luís Freed Order Number: [id number] Moises MD: Abigail Jefferson M.D. Measurements Intervals [place] Rate: 74 P: -22 ID: [id number] QRS: -36 QRSD: 125 T: 131 QT: 432 QTc: 480 Interpretive Statements SINUS RHYTHM LEFT AXIS DEVIATION [QRS AXIS < -30] LEFT BUNDLE BRANCH BLOCK [120+ ms QRS DURATION, 80+ ms Q/S IN V1/V2, 85+ ms R IN I/aVL/V5/V6] No previous ECG available for comparison Electronically Signed On 07-27-2022 7:56:40 RICE FARMER by Abigail Jefferson M.D. [id number]
[2022-07-26 13:45] LABS: Alanine Aminotransferase 17 U/L (0-41); Albumin Level 3.5 g/dL (3.5-5.2); Alkaline Phosphatase 91 U/L (40-130); Anion Gap 13.2 (5-19); Aspartate Amino Transferase 20 U/L (0-40); Blood Urea Nitrogen 18 mg/dL (8-23); Calcium 9.2 mg/dL (8.5-10.5); Carbon Dioxide 26 mmol/L (22-29); Chloride 100 mmol/L (98-107); Glucose 96 mg/dL (65-115); Osmolality Calculated 282 mOsm/kg (285-295); Potassium 4.2 mmol/L (3.5-5.1); Sodium 135 mmol/L (136-145); Total Bilirubin 0.5 mg/dL (0.15-1.2); Total Protein 6.5 g/dL (6.6-8.7)
== END 2022-07-26 17:10 | disposition home or self-care (01) ==
PROVIDERS: Emergency Provider Family Medicine; PCP Family Medicine
DX: G45.9 Transient cerebral ischemic attack, unspecified (principal); I10 Essential (primary) hypertension; Z79.82 Long term (current) use of aspirin; F17.210 Nicotine dependence, cigarettes, uncomplicated
CPT/HCPCS: 70450; 80053; 85025; 93005; 99285

== ENCOUNTER 2022-07-30 16:35 | Observation (INO) | payer MEDICARE, OTHER, SELFPAY ==
[2022-07-30] VITALS (54 sets, daily range): BP systolic 126–155; BP diastolic 66–87; PULSE 72–78; RESP 16–17; TEMP 36.8; O2SAT 95–99; BMI 27.4
--- NOTE | 2022-07-30 16:46 | CTR_ITS ---
PROCEDURE INFORMATION: Exam: CT Head Without Contrast Exam date and time: 07/30/2022 5:24 PM Age: 81 years old Clinical indication: Dizziness and weakness, extremity. Dizzy; Syncope; Slurred speech TECHNIQUE: Imaging protocol: Computed tomography of the head without contrast. Radiation optimization: All CT scans at this facility use at least one of these dose optimization techniques: automated exposure control; mA and/or kV adjustment per patient size (includes targeted exams where dose is matched to clinical indication); or iterative reconstruction. Other protocol: This patient has received 3 known CTs and 0 known cardiac nuclear medicine studies in the 12 months prior to the current study. COMPARISON: CT head wo con* [id number] 07/26/2022 1:41 PM RADIATION DOSE METRICS: Total DLP (mGy-cm): 1168.58 FINDINGS: Brain: There is diffuse cerebral atrophy present, consistent with this patient's age. Calcified plaque is present within the intracranial vasculature. Periventricular and subcortical white matter low densities are present which at this age likely represent microvascular ischemic change.No evidence for large acute ischemic infarction. Please note acute ischemia can be occult by head CT. No evidence for acute intracranial hemorrhage. Cerebral ventricles: No ventriculomegaly. Paranasal sinuses: Visualized sinuses are unremarkable. No fluid levels. Mastoid air cells: Visualized mastoid air cells are well aerated. Bones/joints: Unremarkable. No acute fracture. Soft tissues: Unremarkable. CT/CT head wo con* [id number] IMPRESSION: There are senescent changes of the brain as described above. No evidence for large acute ischemic infarction or acute intracranial injury.
--- NOTE | 2022-07-30 16:46 | XRR_ITS ---
PROCEDURE INFORMATION: Exam: XR Chest Exam date and time: 07/30/2022 4:51 PM Age: 81 years old Clinical indication: Injury or trauma; Other: Keeps falling and hitting his head; Prior surgery; Additional info: Dizzy TECHNIQUE: Imaging protocol: Radiologic exam of the chest. Views: 1 view. COMPARISON: CT abdomen pelvis w con* [id number] 05/22/2022 9:54 PM FINDINGS: Lungs: Prominent interstitial markings. Pleural spaces: There is blunting of the left costophrenic angle suspicious for small pleural effusion. Heart/Mediastinum: Cardiomegaly. Vasculature: There is calcified plaque in the aortic arch. Bones/joints: Unremarkable. Other findings: There are post-sternotomy changes and postoperative changes overlying the mediastinum. XR/XR chest 1V portable [id number] IMPRESSION: 1. Blunting of the left costophrenic angle is suspicious for a small pleural effusion in combination with cardiomegaly, findings raise concern for congestive heart failure. 2. Prominent interstitial markings. This can be seen with pulmonary edema, fibrosis, and or COPD.
--- NOTE | 2022-07-30 16:47 | ECG_ITS ---
[facility] Test Date: 2022-07-30 Pat Name: Aung Whyte Department: Room: Gender: Male Flavor Extractor: : 1940 Requested By: Sai Norman Order Number: [id number] Moises MD: Dony Pringle M.D. Measurements Intervals [place] Rate: 70 P: 11 [place]: 220 QRS: -12 QRSD: 125 T: 95 QT: 436 QTc: 473 Interpretive Statements SINUS RHYTHM WITH FIRST DEGREE AV BLOCK WITH OCCASIONAL VENTRICULAR PREMATURE COMPLEXES MODERATE INTRAVENTRICULAR CONDUCTION DELAY [110+ ms QRS DURATION] ST DEVIATION AND MODERATE T-WAVE ABNORMALITY, CONSIDER LATERAL ISCHEMIA [-0.1+ mV T-WAVE IN I/aVL/V5/V6] Compared to ECG 07/26/2022 13:34:41 Ventricular premature complex(es) now present First degree AV block now present Intraventricular conduction delay now present T-wave abnormality now present Possible ischemia now present Left-axis deviation no longer present Left bundle-branch block no longer present Electronically Signed On 07-30-2022 17:45:45 OTR REFRIGERATED CDL TRUCK DRIVER by Dony Pringle M.D. [id number]
[2022-07-30 16:55] LABS: Basophils % 0.6 %; Eosinophils # 0.7 10^3/uL (0.0-0.8); Eosinophils % 10.5 %; Hemoglobin 13.2 g/dL (11.7-16.6); Lymphocytes # 1.3 10^3/uL (0.8-4.8); Lymphocytes % 20.2 %; Mean Corpuscular Hemoglobin 28.6 pg (28.0-34.0); Mean Corpuscular Volume 86.8 fl (80-94); Mean Platelet Volume 9.5 fL (7.4-10.4); Monocytes # 0.8 10^3/uL (0.2-0.9); Monocytes % 12.6 %; Neutrophils # 3.68 10^3/uL (1.8-7.7); Neutrophils % 55.6 %; Nucleated Red Blood Cells % 0 %; Platelet Count 168 10^3/cmm (130-400); Red Blood Count 4.61 10^6/uL (4.1-5.3); Red Cell Distribution Width 15.1 % (12.1-15.1); White Blood Count 6.6 10^3/uL (4.0-10.0)
[2022-07-30 17:13] LABS: Glucose Point of Care 116 mg/dL (70-110)
[2022-07-30 17:15] LABS: Troponin(5th) Baseline 36 ng/L (0-15)
[2022-07-30 17:31] LABS: Anion Gap 12.9 (5-19); Blood Urea Nitrogen 16 mg/dL (8-23); Calcium 9.5 mg/dL (8.5-10.5); Carbon Dioxide 25 mmol/L (22-29); Chloride 103 mmol/L (98-107); Glucose 105 mg/dL (65-115); Osmolality Calculated 286 mOsm/kg (285-295); Potassium 3.9 mmol/L (3.5-5.1); Sodium 137 mmol/L (136-145); Thyroid Stimulating Hormone 3.44 uIU/mL (0.27-4.20)
[2022-07-30 17:42] LABS: Bilirubin Urine Neg (Negative); Blood Urine Neg (Negative); Glucose Urine UA Norm (Normal); Ketones Urine Negative (Negative); Leukocyte Esterase Urine Negative (Negative); Nitrate Urine Negative (Negative); Protein Urine Neg (Negative); Urine Appearance Clear (CLEAR); Urine Color Yellow (Yellow); Urobilinogen Urine Neg (Negative); pH Urine 7 (5-7)
[2022-07-30 18:11] LABS: Add Urine Culture? No; Amorphous Sediment Urine TRACE /hpf; Hyaline Casts Urine RARE /lpf
--- NOTE | 2022-07-30 18:47 | ECG_ITS ---
[facility] Test Date: 2022-07-30 Pat Name: Aung Whyte Department: Room: Gender: Male Landing Support Specialist: : 1940 Requested By: Sai Norman Order Number: [id number] Reading MD: Dony Pringle M.D. Measurements Intervals [place] Rate: 73 P: 0 VA: 0 QRS: -12 QRSD: 123 T: 133 QT: 429 QTc: 474 Interpretive Statements SINUS RHYTHM MODERATE INTRAVENTRICULAR CONDUCTION DELAY [110+ ms QRS DURATION] ST DEVIATION AND MODERATE T-WAVE ABNORMALITY, CONSIDER LATERAL ISCHEMIA [-0.1+ mV T-WAVE IN I/aVL/V5/V6] Compared to ECG 07/30/2022 17:12:58 First degree AV block no longer present T-wave abnormality still present Possible ischemia still present Electronically Signed On 07-31-2022 7:46:41 INPATIENT NURSING AIDE by Dony Pringle M.D. [id number]
[2022-07-30 19:11] LABS: Troponin 5 2HR 33.45 ng/L (0-15)
[2022-07-30 19:13] LABS: Troponin 5 2HR Delta -2.55 ABS# (0-10)
[2022-07-30] MEDS: FUROsemide 10 mg/mL SDV 2mL 20 MG IVP (19:38)
--- NOTE | 2022-07-30 19:40 | W.ED.SYNCOPE ---
HPI - Syncope General: Chief Complaint: Syncope Stated Complaint: SYNCOPE Time Seen by Provider: 07/30/22 16:44 Source: patient and family () Limitations: no limitations History of Present Illness: See nursing assessment. Patient and state patient has been having syncopal episodes once or twice a day for the last several days. Today patient had 1 syncopal episode and another near syncopal episode. Patient hit his head a couple times. Patient denies any neck or back pain. He denies any pain to the chest abdomen or pelvis. Denies any pain in his extremities. Patient initially said he want to go home despite encouraging him to stay in the hospital. I also stated that patient required admission for further work-up of his syncope. Patient later stated he would be willing to stay in the hospital. Syncopal usually occurs while walking. Associated symptoms: Deny abdominal pain, chest pain, fever(s), headache(s) or nausea Review of Systems Const: Denies: fever(s) or chills Eyes: Denies: change in vision ENMT: Denies: throat pain Card: Denies: chest pain or palpitations Resp: Denies: dyspnea or wheezing GI: Denies: abdominal pain, nausea or vomiting : Denies: flank pain Musc: Denies: neck pain or back pain Skin/Breast: Denies: rash or pruritus Neuro: Denies: headache(s) or numbness in extremities Psych: Denies: anxiety Francis/Lymph: Denies: enlarged lymph nodes PFSH ED PFSH: Medical History Essential hypertension Surgical History Hx of heart bypass surgery No significant past surgical history Social History Smoking and tobacco status: current some day smoker Alcohol intake: never Physical Exam Const: COMMON NORMALS: no acute distress, patient oriented x3, no limitations and well nourished GENERAL APPEARANCE: cooperative HENMT: COMMON NORMALS: normocephalic HEAD & SCALP: normocephalic FACE & SINUS: normal facial exam OTHER: Few superficial abrasions to forehead and frontal scalp. No soft tissue swelling. No step-off. Eye: COMMON NORMALS: EOMs intact bilaterally Neck/C-Spine: COMMON NORMALS: full ROM, no lymphadenopathy, supple and no meningeal signs GENERAL: Yes normal visual inspection Lymph: LYMPHATIC: no lymphadenopathy noted Chest: COMMONS NORMALS: normal inspection of the chest and normal palpation of entire chest wall CHEST: No Ecchymosis present and No rash Resp: COMMON NORMALS: normal respiratory effort, No retractions and clear to auscultation bilaterally EFFORT & INSPECTION: No respiratory distress AUSCULTATION: clear to auscultation bilaterally Cardio: COMMON NORMALS: regular rate, regular rhythm and Peripheral pulses 2+ throughout JUGULAR VENOUS DISTENTION: no JVD RATE: regular rate RHYTHM: regular rhythm PERIPHERAL PULSES: Peripheral pulses 2+ throughout GI: COMMON NORMALS: Normal to inspection, nondistended, normoactive bowel sounds present and non-tender : COMMON NORMALS: Yes no CVA tenderness BLADDER/KIDNEY EXAM: Yes no CVA tenderness Back/Pelvis: COMMON NORMALS: no CVA tenderness Extremity: COMMON NORMALS: normal to inspection, full ROM and capillary refill normal Neuro: COMMON NORMALS: patient oriented x3, CN's II-XII intact bilaterally, no focal motor deficits and no sensory deficits noted MENINGEAL SIGNS: Yes no meningeal signs Psych: COMMON NORMALS: mental status grossly normal and Normal thought process present THOUGHT PROCESS: Normal thought process present Skin: COMMON NORMALS: no rashes or lesions noted and no wounds GENERAL SKIN EXAM: no rashes or lesions noted OTHER: Few scattered superficial abrasions. Course Vital Signs: Vital signs: Vital Signs Temperature 98.2 F 07/30/22 16:37 Pulse Rate 72 07/30/22 16:37 Respiratory Rate 17 07/30/22 16:37 Blood Pressure 140/76 07/30/22 20:25 Pulse Oximetry 96 07/30/22 20:25 Oxygen Delivery Me thod 07/30/22 16:37 MDM - Syncope Medical Decision Making Syncope of unknown cause. Patient was stable mildly elevated troponin. Patient initially did not want to be admitted. However, patient did change his mind finally consented to admission for further work-up of his syncope. Patient likely will need echocardiogram and further work-up. Case discussed with hospitalist Dr. Pradhan. Patient will be observed in the hospital to medical telemetry bed. Lab Data 07/30/22 16:47 07/30/22 16:47 Radiology Impressions Chest X-Ray 07/30/22 16:46 IMPRESSION: 1. Blunting of the left costophrenic angle is suspicious for a small pleural effusion in combination with cardiomegaly, findings raise concern for congestive heart failure. 2. Prominent interstitial markings. This can be seen with pulmonary edema, fibrosis, and or COPD. Head CT 07/30/22 16:46 IMPRESSION: There are senescent changes of the brain as described above. No evidence for large acute ischemic infarction or acute intracranial injury. Laboratory Results WBC 6.6 10^3/uL (4.0-10.0) 07/30/22 16:47 RBC 4.61 10^6/uL (4.1-5.3) 07/30/22 16:47 Hgb 13.2 g/dL (11.7-16.6) 07/30/22 16:47 Hct 40.0 % (42.0-52.0) L 07/30/22 16:47 MCV 86.8 fl (80-94) 07/30/22 16:47 MCH 28.6 pg (28.0-34.0) 07/30/22 16:47 MCHC 33.0 g/dL (30.0-36.0) 07/30/22 16:47 RDW 15.1 % (12.1-15.1) 07/30/22 16:47 Plt Count 168 10^3/cmm (130-400) 07/30/22 16:47 MPV 9.5 fL (7.4-10.4) 07/30/22 16:47 Neut % (Auto) 55.6 % 07/30/22 16:47 Lymph % (Auto) 20.2 % 07/30/22 16:47 Crenshaw % (Auto) 12.6 % 07/30/22 16:47 Eos % (Auto) 10.5 % 07/30/22 16:47 Baso % (Auto) 0.6 % 07/30/22 16:47 Neut # (Auto) 3.68 10^3/uL (1.8-7.7) 07/30/22 16:47 Lymph # (Auto) 1.3 10^3/uL (0.8-4.8) 07/30/22 16:47 Crenshaw # (Auto) 0.8 10^3/uL (0.2-0.9) 07/30/22 16:47 Eos # (Auto) 0.7 10^3/uL (0.0-0.8) 07/30/22 16:47 Baso # (Auto) 0.0 10^3/uL (0.0-0.1) 07/30/22 16:47 Nucleated RBC % (auto) 0 % 07/30/22 16:47 Nucleated RBCs # 0.0 /100WBC 07/30/22 16:47 Sodium 137 mmol/L (136-145) 07/30/22 16:47 Potassium 3.9 mmol/L (3.5-5.1) 07/30/22 16:47 Chloride 103 mmol/L (98-107) 07/30/22 16:47 Carbon Dioxide 25 mmol/L (22-29) 07/30/22 16:47 Anion Gap 12.9 (5-19) 07/30/22 16:47 BUN 16 mg/dL (8-23) 07/30/22 16:47 Creatinine 1.0 mg/dL (0.7-1.2) 07/30/22 16:47 GFR Calculation Not Reportable 07/30/22 16:47 Glucose 105 mg/dL (65-115) 07/30/22 16:47 POC Glucose 116 mg/dL (70-110) H 07/30/22 17:09 Calculated Osmolality 286 mOsm/kg (285-295) 07/30/22 16:47 Calcium 9.5 mg/dL (8.5-10.5) 07/30/22 16:47 Magnesium 2.0 mg/dL (1.7-2.3) 07/30/22 16:47 Troponin T Baseline 36 ng/L (0-15) H 07/30/22 16:47 Troponin T 120 Minute 33.45 ng/L (0-15) H 07/30/22 18:46 Delta Troponin T -2.55 ABS# (0-10) L 07/30/22 18:46 TSH 3.44 uIU/mL (0.27-4.20) 07/30/22 16:47 Urine Color Yellow (Yellow) 07/30/22 17:14 Urine Appearance Clear (CLEAR) 07/30/22 17:14 Urine pH 7 (5-7) 07/30/22 17:14 Ur Specific [place] 1.010 (1.005-1.030) 07/30/22 17:14 Urine Protein Neg (Negative) 07/30/22 17:14 Urine Glucose (UA) Norm (Normal) 07/30/22 17:14 Urine Ketones Negative (Negative) 07/30/22 17:14 Urine Blood Neg (Negative) 07/30/22 17:14 Urine Nitrate Negative (Negative) 07/30/22 17:14 Urine Bilirubin Neg (Negative) 07/30/22 17:14 Urine Urobilinogen Neg mg/dL (Negative) 07/30/22 17:14 Ur Leukocyte Esterase Negative (Negative) 07/30/22 17:14 Urine RBC None /hpf (0-2) 07/30/22 17:14 Urine WBC None /hpf (0-5) 07/30/22 17:14 Ur Squamous Epith Cells None /hpf (0-5) 07/30/22 17:14 Amorphous Sediment Trace /hpf 07/30/22 17:14 Urine Bacteria None /hpf (NONE) 07/30/22 17:14 Hyaline Casts Rare /lpf 07/30/22 17:[address] Head: Radiologist's impression: PROCEDURE INFORMATION: Exam: CT Head Without Contrast Exam date and time: 07/30/2022 5:24 PM Age: 81 years old Clinical indication: Dizziness and weakness, extremity. Dizzy; Syncope; Slurred speech TECHNIQUE: Imaging protocol: Computed tomography of the head without contrast. Radiation optimization: All CT scans at this facility use at least one of these dose optimization techniques: automated exposure control; mA and/or kV adjustment per patient size (includes targeted exams where dose is matched to clinical indication); or iterative reconstruction. Other protocol: This patient has received 3 known CTs and 0 known cardiac nuclear medicine studies in the 12 months prior to the current study. COMPARISON: CT head wo con* [id number] 07/26/2022 1:41 PM RADIATION DOSE METRICS: Total DLP (mGy-cm): 1168.58 FINDINGS: Brain: There is diffuse cerebral atrophy present, consistent with this patient's age. Calcified plaque is present within the intracranial vasculature. Periventricular and subcortical white matter low densities are present which at this age likely represent microvascular ischemic change.No evidence for large acute ischemic infarction. Please note acute ischemia can be occult by head CT. No evidence for acute intracranial hemorrhage. Cerebral ventricles: No ventriculomegaly. Paranasal sinuses: Visualized sinuses are unremarkable. No fluid levels. Mastoid air cells: Visualized mastoid air cells are well aerated. Bones/joints: Unremarkable. No acute fracture. Soft tissues: Unremarkable. CT/CT head wo con* [id number] IMPRESSION: There are senescent changes of the brain as described above. No evidence for large acute ischemic infarction or acute intracranial injury. ? Dictated By: Natalie Boyle MD Signed By: Natalie Boyle MD Signed Date/Time: 07/30/22 1751 CXR: Radiologist's impression: PROCEDURE INFORMATION: Exam: XR Chest Exam date and time: 07/30/2022 4:51 PM Age: 81 years old Clinical indication: Injury or trauma; Other: Keeps falling and hitting his head; Prior surgery; Additional info: Dizzy TECHNIQUE: Imaging protocol: Radiologic exam of the chest. Views: 1 view. COMPARISON: CT abdomen pelvis w con* [id number] 05/22/2022 9:54 PM FINDINGS: Lungs: Prominent interstitial markings. Pleural spaces: There is blunting of the left costophrenic angle suspicious for small pleural effusion. Heart/Mediastinum: Cardiomegaly. Vasculature: There is calcified plaque in the aortic arch. Bones/joints: Unremarkable. Other findings: There are post-sternotomy changes and postoperative changes overlying the mediastinum. XR/XR chest 1V portable [id number] IMPRESSION: 1. Blunting of the left costophrenic angle is suspicious for a small pleural effusion in combination with cardiomegaly, findings raise concern for congestive heart failure. 2. Prominent interstitial markings. This can be seen with pulmonary edema, fibrosis, and or COPD. ? Dictated By: Natalie Boyle MD Signed By: Natalie Boyle MD Signed Date/Time: 07/30/22 1711 EKG Data EKG 1: I personally reviewed and interpreted this EKG as follows: EKG interpretation date: 07/30/22 EKG interpretation time: 17:15 Interpretation: Normal sinus rhythm with occasional PVCs. Heart rate 70. First-degree AV block. Left axis. IVCD. Nonspecific ST-T changes. EKG 2: I personally reviewed and interpreted this EKG as follows: EKG interpretation date: 07/30/22 EKG interpretation time: 18:54 Prior EKG tracings: available for review (Unchanged from previous) Interpretation: Normal sinus rhythm heart rate 73. First-degree AV block. Left axis. IVCD. Nonspecific ST-T changes. Normal P waves. Unchanged from previous EKG earlier. Discharge Plan Discharge Patient Disposition: Placed in Observation Admit Provider: Jose Juan Pradhan Clinical Impression: Syncope Qualifiers: Syncope type: unspecified Qualified Code(s): R55 - Syncope and collapse CHF (congestive heart failure) Qualifiers: Heart failure type: diastolic Heart failure chronicity: acute Qualified Code(s): I50.31 - Acute diastolic (congestive) heart failure Pulmonary edema Qualifiers: Chronicity: acute Qualified Code(s): J81.0 - Acute pulmonary edema Contusion of scalp Qualifiers: Encounter type: initial encounter Qualified Code(s): S00.03XA - Contusion of scalp, initial encounter Coding Level of Care Code ED Dial Mounter for Deondre Krishnamurthy
--- NOTE | 2022-07-30 20:11 | P.HP_ITS ---
Providers/Chief Complaint Primary Care Provider: Bro Adrian MD Chief Complaint: SYNCOPE History of Present Illness Aung Whyte is a 81 year old male with past medical history of hypertension, CAD s/p CABG, HFrEF, Was brought in from home with chief complaint of, possible syncope/presyncopal episodes, according to the patient , Mr. Whyte is having blanking out episodes, which he has experienced, increasingly in the last 1 week, according to patient and they have denied complete loss of consciousness, any seizure-like activity, has denied any chest pain, shortness of breath, lightheadedness, spinning of head or room. When he arrived here in the ER.Currently denies any weakness, is moving all his extremity, appropriately responding to all the questions.Patient is also describing that lately he is experiencing difficulty with ambulation.Routinely uses walker at home. CT head without contrast was done: Which has failed to show any acute intracranial pathology. EKG sinus rhythm X-ray chest: Has shown, pulmonary edema, possible small LT pleural effusion, cardiomegaly. Troponin trend: 36-33 proBNP:9504 Urinalysis is clean Carotid duplex bilateral: Severe stenosis of the proximal left external carotid artery. Review of Systems General: Reports: 10 or more systems reviewed and unremarkable except in HPI and below Const: Denies: fever(s), chills, body aches, change in appetite or diaphoresis Card: Denies: palpitations, edema, swelling of feet/ankles, dyspnea on exertion, orthopnea or leg pain with exertion Resp: Denies: dyspnea, productive cough, wheezing or pain on inspiration GI: Denies: abdominal pain, nausea, vomiting, diarrhea or constipation : Denies: flank pain or difficulty urinating Musc: Denies: back pain, extremity pain or extremity swelling Neuro: Denies: headache(s), difficulty walking or confusion Medications/Allergies Home Medications Medication Instructions Recorded Confirmed Last Taken Type aspirin 81 mg tablet,delayed 81 mg PO QAM 04/10/22 07/26/22 07/26/22 History release tamsulosin 0.4 mg capsule 0.4 mg PO DAILY 04/10/22 07/26/22 07/08/22 History carvedilol 25 mg tablet 25 mg PO BID 06/20/22 07/26/22 07/26/22 History potassium chloride 20 mEq 20 meq PO QAM 06/20/22 07/26/22 07/26/22 History tablet,extended release(part/cryst) hydrocodone 7.5 mg-acetaminophen 1 tab PO Q6H PRN pain #20 tabs 07/09/22 07/26/22 3 Days Ago Rx 325 mg tablet ~07/23/22 states out acetaminophen 500 mg tablet 1,000 mg PO Q6H PRN Pain 07/26/22 07/26/22 Unknown History atorvastatin 40 mg tablet 40 mg PO DAILY #30 tabs 07/26/22 Unknown Rx clopidogrel 75 mg tablet 75 mg PO DAILY #30 tabs 07/26/22 Unknown Rx furosemide 40 mg tablet 40 mg PO QAM 07/26/22 07/26/22 07/26/22 History hydroxyzine HCl 25 mg tablet 25 mg PO BEDTIME itching 07/26/22 07/26/22 07/22/22 History see pharmacy comment multivitamin 1 tab PO DAILY 07/26/22 07/26/22 Unknown History Allergies Allergy/AdvReac Type Severity Reaction Status Date / Time No Known Allergies Allergy Verified 07/26/22 13:34 PFSH Acute PFSH: Medical History Essential hypertension Surgical History Hx of heart bypass surgery No significant past surgical history Social History Smoking and tobacco status: current some day smoker Alcohol intake: never Vitals/I&O/Wt Last Vital Signs Temp 98.2 F 07/30/22 16:37 Pulse 72 07/30/22 16:37 Resp 17 07/30/22 16:37 BP 128/78 07/30/22 19:40 Pulse Ox 95 07/30/22 19:40 O2 Del Method 07/30/22 16:37 Weight last 48 hrs Weight 72.575 kg Physical Exam Const: COMMON NORMALS: patient oriented x3 HENMT: COMMON NORMALS: normocephalic and atraumatic HEAD & SCALP: normocephalic and atraumatic Resp: COMMON NORMALS: clear to auscultation bilaterally Cardio: COMMON NORMALS: regular rate, regular rhythm, S1 normal heart sound present, S2 normal heart sound present, No gallops present (Cardio), No murmurs present (Cardio), No rub (Cardio) and Peripheral pulses 2+ throughout RATE: regular rate RHYTHM: regular rhythm HEART SOUNDS: S1 normal heart sound present and S2 normal heart sound present PERIPHERAL PULSES: Peripheral pulses 2+ throughout GI: COMMON NORMALS: Normal to inspection, nondistended, normoactive bowel sounds present, Soft to palpation, non-tender, No hepatosplenomegaly present and no masses AUSCULTATION: Yes normoactive bowel sounds PALPATION: Yes Soft to palpation and Yes No hepatosplenomegaly present RECTAL EXAM: Yes deferred Extremity: COMMON NORMALS: no clubbing, cyanosis or edema and no pedal edema Neuro: COMMON NORMALS: patient oriented x3 Data 07/30/22 16:47 07/30/22 16:47 A&P Assessment and plan (1) Syncope: Qualifiers: Syncope type: unspecified Qualified Code(s): R55 - Syncope and collapse (2) CAD (coronary artery disease): (3) Hx of heart bypass surgery: (4) HFrEF (heart failure with reduced ejection fraction): (5) Essential hypertension: (6) Severe pulmonary hypertension: Plan 81 year old male with past medical history of hypertension, CAD s/p CABG, HFrEF, Was brought in from home with chief complaint of, possible syncope/presyncopal episodes, according to the patient , Mr. Whyte is having blanking out episodes, which he has experienced, increasingly in the last 1 week. Assessment: Presyncope/possible syncopal episodes: Could be possible due to underlying arrhythmia. CT head without contrast was done: Which has failed to show any acute intracranial pathology. EKG sinus rhythm X-ray chest: Has shown, pulmonary edema, possible small LT pleural effusion, cardiomegaly. 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 Most recent 2D echo: 04/11: Mildly dilated left ventricular size. Severely decreased left ?ventricular systolic function. Left ventricular ejectio n?fraction is estimated at 20 %.? Severe global left ventricular ?hypokinesis.? Abnormal diastolic function (restrictive filling ?pattern) with severely elevated filling pressures.Upper normal right ventricular size and mildly decreased systolic function.Severe pulmonary hypertension with pulmonary pressure ?estimated at 66 mmHg. Mild aortic and tricuspid valve regurgitation. Most recent nuclear stress test: ( 05/09)large sized, mostly fixed perfusion defect noted in apical, apical?anterior, anterior, inferior and inferolateral sandoval.? Minimal lucas-infarct ?ischemia seen in inferior and anterior sandoval. Orthostatic vital signs check Fall precaution Telemetry monitoring History of coronary artery disease status post CABG Continue aspirin Plavix, beta-mor, statin History of heart failure with reduced ejection fraction: Currently compensated Continue Lasix 40 p.o. daily, oral potassium, continue carvedilol On telemetry monitoring See Dr. Briceño as outpatient History of hypertension: Continue carvedilol Monitor blood pressure for appropriate goal. CODE STATUS: Full code DVT prophylaxis on Lovenox Attestations Medical Necessity Statement*: Patient needs to be in hospital for management of syncope. Coding Level of Care Code 55920 Diagnoses Syncope R55 Syncope type: unspecified CAD (coronary artery disease) I25.10 Hx of heart bypass surgery Z95.1 HFrEF (heart failure with reduced ejection fraction) I50.20 Essential hypertension I10 Severe pulmonary hypertension I27.20
--- NOTE | 2022-07-30 20:11 | USR_ITS ---
PROCEDURE INFORMATION: Exam: US Duplex Bilateral Extracranial Arteries, Carotid Arteries Exam date and time: 07/30/2022 8:33 PM Age: 81 years old Clinical indication: Syncope and collapse; Patient HX: Multiple syncopal episodes , 1-2 per day for the last week TECHNIQUE: Imaging protocol: Real-time Duplex ultrasound scan of the bilateral carotid and vertebral arteries combining nur scale, color Doppler and spectral waveform analysis. Bilateral exam. Exam focused on the carotid arteries. COMPARISON: CT head wo con* [id number] 07/30/2022 5:24 PM FINDINGS: Right common carotid artery: Unremarkable. No occlusion or stenosis. Waveforms are normal. Right internal carotid artery: Mild waveform spectral broadening. Right ICA/CCA ratio: Within normal limits. Right external carotid artery: No stenosis in the origin. Right vertebral artery: Unremarkable. Antegrade flow. Left common carotid artery: Unremarkable. No occlusion or stenosis. Waveforms are normal. Left internal carotid artery: Mild waveform spectral broadening. There is bsev-kd-wanyafza heterogeneous atherosclerotic plaque in the bilateral common carotid and internal carotid arteries. Left ICA/CCA ratio: Within normal limits. Left external carotid artery: Severe stenosis left ECA. Peak systolic velocity of the proximal left ECA is 255 cm/s. Left vertebral artery: There is bidirectional flow. US/CV carotid duplex BI* [id number] IMPRESSION: 1. There is tsvs-fv-bhgsrzuk atherosclerotic plaque in the bilateral common carotid and internal carotid arteries. Peak systolic velocities are within normal limits. 2. 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 3. There is bidirectional flow in the left vertebral artery. REFERENCES: SRU CRITERIA. The degree of internal carotid artery stenosis is based on criteria defined by the Society of Radiologists in Ultrasound (SRU). Normal is no stenosis. Mild is less than 50% stenosis. Moderate is 50-69% stenosis. Severe is greater than 69% stenosis to near occlusion. Near occlusion is a markedly narrowed lumen. Total occlusion is no detectable patent lumen.
[2022-07-30 21:04] LABS: NT Pro B Type Natriuretic Pept 9504 pg/mL (0-450)
--- NOTE | 2022-07-30 22:47 | ECG_ITS ---
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 Measurements Intervals [place] Rate: 74 P: 37 OK: 175 QRS: 40 QRSD: 128 T: 231 QT: 427 QTc: 476 Interpretive Statements SINUS RHYTHM LEFT VENTRICULAR HYPERTROPHY AND ST-T CHANGE [VOLTAGE CRITERIA PLUS ST/T ABNORMALITY] POSSIBLE ANTERIOR MYOCARDIAL INFARCTION , OF INDETERMINATE AGE [30 ms Q WAVE IN V3/V4, OR R < 0.2 mV IN V4] Compared to ECG 07/30/2022 18:52:08 Left ventricular hypertrophy now present ST (T wave) deviation now present Myocardial infarct finding now present Intraventricular conduction delay no longer present T-wave abnormality no longer present Possible ischemia no longer present Electronically Signed On 07-31-2022 7:46:01 RINK RAT by Dony Pringle M.D. [email or web address]
[2022-07-30 23:00] LABS: Troponin 5 6HR 32.17 ng/L (0-15)
[2022-07-30 23:32] LABS: Troponin 5 6HR Delta -3.83 ng/L (0-12)
[2022-07-31] VITALS: BP 96/57; PULSE 68; RESP 16; TEMP 36.6; O2SAT 94
[2022-07-31 02:10] VITALS: BP 104/66; BP 135/91; BP 138/81; PULSE 71; PULSE 73; PULSE 74
[2022-07-31 03:30] VITALS: BP 135/91; PULSE 74; RESP 17; TEMP 36.6; O2SAT 95
[2022-07-31 05:58] LABS: Basophils # 0.1 10^3/uL (0.0-0.1); Basophils % 0.9 %; Eosinophils # 0.6 10^3/uL (0.0-0.8); Eosinophils % 10.2 %; Hematocrit 40.1 % (42.0-52.0); Hemoglobin 13.4 g/dL (11.7-16.6); Lymphocytes # 1.5 10^3/uL (0.8-4.8); Mean Corpuscular HGB Conc 33.4 g/dL (30.0-36.0); Mean Corpuscular Hemoglobin 28.8 pg (28.0-34.0); Mean Corpuscular Volume 86.1 fl (80-94); Mean Platelet Volume 9.4 fL (7.4-10.4); Monocytes # 0.7 10^3/uL (0.2-0.9); Monocytes % 12.1 %; Neutrophils # 3.02 10^3/uL (1.8-7.7); Neutrophils % 51.5 %; Nucleated Red Blood Cells % 0 %; Platelet Count 157 10^3/cmm (130-400); Red Blood Count 4.66 10^6/uL (4.1-5.3); Red Cell Distribution Width 15.1 % (12.1-15.1); White Blood Count 5.9 10^3/uL (4.0-10.0)
[2022-07-31] MEDS: aspirin 81 mg EC Tablet PO (06:09)
[2022-07-31] MEDS: FUROsemide 40 mg Tablet PO (06:09)
[2022-07-31] MEDS: potassium chloride ER 20 mEq Tablet PO (06:09)
[2022-07-31] MEDS: enoxaparin 40 mg/0.4 mL Syringe SUBCUT (06:10)
[2022-07-31 06:31] LABS: D Dimer 1.37 ug/mIFEU (0-0.59)
[2022-07-31 06:34] LABS: Anion Gap 15.7 (5-19); Blood Urea Nitrogen 15 mg/dL (8-23); Calcium 9.2 mg/dL (8.5-10.5); Carbon Dioxide 26 mmol/L (22-29); Chloride 100 mmol/L (98-107); Glucose 86 mg/dL (65-115); Osmolality Calculated 286 mOsm/kg (285-295); Potassium 3.7 mmol/L (3.5-5.1); Sodium 138 mmol/L (136-145)
[2022-07-31 07:03] LABS: Prolactin 8.68 ng/mL (4.0-15.2)
[2022-07-31 08:00] VITALS: BP 119/71; BP 121/69; BP 87/50; BP 96/59; PULSE 61; RESP 16; O2SAT 94
--- NOTE | 2022-07-31 09:46 | CT_ITS ---
WS: [id number] CT CHEST ANGIOGRAPHY WITH REFORMATS HISTORY: RECURRENT FALLS TECHNIQUE: Contiguous axial images are obtained through the chest during arterial injection of intrav enous contrast. Images are reconstructed to evaluate the pulmonary arteries. MIP imaging also reviewe d. All CT scans at [facility] use at least one of these dose optimization techniques: automat ed exposure control; mA and/or kV adjustment per patient size (includes targeted exams where dose is matched to clinical indication); or iterative reconstruction. CONTRAST: Omnipaque 350; 78mL IV. DLP: 324.28 mGy.cm COMPARISON: None available. Good opacification of the pulmonary arteries. Normal size pulmonary artery. No filling defects or pul monary emboli. Heavy calcification within the thoracic aorta. Mild aortic dilatation. Calcification c ontinues into the great vessels. Severe LEFT heart enlargement. No pericardial effusion. A small bila teral pleural effusions. There is mild interstitial and reticular thickening throughout both lungs but greatest on the LEFT. N o dense areas of consolidation or mass. No mediastinal or hilar adenopathy. Prior CABG. Increase in thoracic kyphosis. Partially visualized RIGHT renal cyst. Gallbladder is nega tive. Blush-like area of enhancement in the proximal duodenum. Could be an area of active GI bleeding . CT/CT angio chest PE protcl [id number] IMPRESSION: 1. No pulmonary embolism. 2. Severe LEFT heart enlargement. 3. Mild diffuse reticular thickening throughout both lungs but greatest on the LEFT. Consider pneumonitis. 4. Blush-like area of enhancement in the duodenum. Differential includes medic inal or ingested material. Clinically consider possible proximal GI bleed.
--- NOTE | 2022-07-31 09:53 | PC.CHAP ---
Pastoral Care Encounter/Spiritual Assessment Type of Contact [] Declined senior ui web developer visit [] Patient/Family/Request visit [] Outpatient visit [] Follow-up visit [] Physician referral [] Code/Alert [] Routine visit [] Staff referral [] Actively dying [] Patient sleeping [] Family support [] [] Out of room [] Palliative care [] [x] Receiving care in room [] Pre-surgical visit [] Trauma [] Long length of stay [] ICU visit [] Other: Relational/Emotional Strength [] Patient feels connected with others/family/visitors/staff [] Distress [] Loneliness/isolation [] Abandonment Spirituality of Patient [] Person of Briana [] Attends Denominational of their Briana [] Believes in Prayer [] Reads Bible or Sikh materials [] There are Spiritual issues to be addressed 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 Interventions [] Prayer [] Active listening [] Non-anxious presence [] Spiritual/emotional support [] Crisis/trauma care [] Spiritual counseling [] Bereavement support [] Provided bereavement packet [] Provided Bible/devotional materials [] Provided toy/stuffed animal, coloring book to patient or family member [] Provided Communion [] Anointing/[place] [] Salvation [] Completed spiritual assessment [] Other: Impact on Illness or Injury [] Angry [] Fearful [] Anxious [] Often cries [] Exhaustion [] Unable to work [] Unable to attend denominational [] Unable to walk/stand [] Unable to read [] Unable to drive [] Unable to eat/drink [] Unable to sleep [] Unable to be with family [] Patient intubated [] Other: Summary Time spent with patient
[2022-07-31] MEDS: pyridostigmine 60 mg Tablet 30 MG PO (10:27)
[2022-07-31] MEDS: carvedilol 25 mg Tablet PO (10:27)
[2022-07-31] MEDS: atorvastatin 40 mg Tablet PO (10:27)
[2022-07-31] MEDS: iohexol 350 mg/mL 500 mL Btl (per mL) IV (10:44)
[2022-07-31 12:00] VITALS: BP 103/63; PULSE 70; O2SAT 96
--- NOTE | 2022-07-31 12:14 | P.DS_ITS ---
Discharge Providers Date of Admission: 07/30/22 20:32 Date of Discharge: July 31, 2022 Attending Provider at Admission: Jose Juan Pradhan MD Attending Provider at Discharge: Jose Juan Pradhan MD Primary Care Provider: Bro Adrian MD Diagnoses at Discharge Discharge Diagnosis (1) Syncope: Status: Inactive Qualifiers: Syncope type: unspecified Qualified Code(s): R55 - Syncope and collapse (2) CAD (coronary artery disease): Status: Inactive (3) Hx of heart bypass surgery: Status: Inactive (4) HFrEF (heart failure with reduced ejection fraction): Status: Inactive (5) Essential hypertension: Status: Inactive (6) Severe pulmonary hypertension: Status: Inactive Reason for Visit Reason for Visit: SYNCOPE Hospital Course Hospital Course 81-year-old male with history of quadruple bypass, as per the patient has not seen a leather belt loop cutter in the last 17 years, they have lived in [place] and recently moved to [place], he has been having recurrent falls at home, sometimes just stares at the ceiling, no history of seizure, no syncopal events, patient does not want to get an AICD or see a leather belt loop cutter however started following a leather belt loop cutter in [place], he was diagnosed with orthostatic hypotension he also takes tamsulosin. Clinically looks dehydrated as well, secondary to high D-dimer CTA chest was requested to rule out PE, patient is hemodynamic stable I requested vitamin B12 and physical therapy for his discharge CTA did not show any signs of PE, patient does not want to see leather belt loop cutter inpatient, B12 541, Physical Exam Narrative: Awake and alert Romberg sign negative Signs of neuropathy S1, S2 Abdomen soft No active signs of heart failure Currently on room air Pleasant and cooperative Discharge Data Studies Completed and Pending Completed Studies During Hospitalization Category Date Time Status CT head wo con* [id number] Urgent Cat Scan 07/30/22 16:46 Completed XR chest 1V portable [id number] Urgent Exams 07/30/22 16:46 Completed CV carotid duplex BI* [id number] Routine Ultrasound 07/30/22 20:11 Completed Pending at discharge Category Date Time Status CTA PE [CT angio chest PE protcl [id number]] Stat Cat Scan 07/31/22 09:46 Taken B12 [Vitamin B12] Routine Lab 07/31/22 12:11 Ordered Radiology Impressions Chest X-Ray 07/30/22 16:46 IMPRESSION: 1. Blunting of the left costophrenic angle is suspicious for a small pleural effusion in combination with cardiomegaly, findings raise concern for congestive heart failure. 2. Prominent interstitial markings. This can be seen with pulmonary edema, fibrosis, and or COPD. Head CT 07/30/22 16:46 IMPRESSION: There are senescent changes of the brain as described above. No evidence for large acute ischemic infarction or acute intracranial injury. Carotid Doppler Study 07/30/22 20:11 IMPRESSION: 1. There is [id number] atherosclerotic plaque in the bilateral common carotid and internal carotid arteries. Peak systolic velocities are within normal limits. 2. 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 3. There is bidirectional flow in the left vertebral artery. REFERENCES: SRU CRITERIA. The degree of internal carotid artery stenosis is based on criteria defined by the Society of Radiologists in Ultrasound (SRU). Normal is no stenosis. Mild is less than 50% stenosis. Moderate is 50-69% stenosis. Severe is greater than 69% stenosis to near occlusion. Near occlusion is a markedly narrowed lumen. Total occlusion is no detectable patent lumen. Laboratory Results WBC 5.9 10^3/uL (4.0-10.0) 07/31/22 05:32 RBC 4.66 10^6/uL (4.1-5.3) 07/31/22 05:32 Hgb 13.4 g/dL (11.7-16.6) 07/31/22 05:32 Hct 40.1 % (42.0-52.0) L 07/31/22 05:32 MCV 86.1 fl (80-94) 07/31/22 05:32 MCH 28.8 pg (28.0-34.0) 07/31/22 05:32 MCHC 33.4 g/dL (30.0-36.0) 07/31/22 05:32 RDW 15.1 % (12.1-15.1) 07/31/22 05:32 Plt Count 157 10^3/cmm (130-400) 07/31/22 05:32 MPV 9.4 fL (7.4-10.4) 07/31/22 05:32 Neut % (Auto) 51.5 % 07/31/22 05:32 Lymph % (Auto) 25.0 % 07/31/22 05:32 [place] % (Auto) 12.1 % 07/31/22 05:32 Eos % (Auto) 10.2 % 07/31/22 05:32 Baso % (Auto) 0.9 % 07/31/22 05:32 Neut # (Auto) 3.02 10^3/uL (1.8-7.7) 07/31/22 05:32 Lymph # (Auto) 1.5 10^3/uL (0.8-4.8) 07/31/22 05:32 [place] # (Auto) 0.7 10^3/uL (0.2-0.9) 07/31/22 05:32 Eos # (Auto) 0.6 10^3/uL (0.0-0.8) 07/31/22 05:32 Baso # (Auto) 0.1 10^3/uL (0.0-0.1) 07/31/22 05:32 Nucleated RBC % (auto) 0 % 07/31/22 05:32 Nucleated RBCs # 0.0 /100WBC 07/31/22 05:32 D-Dimer 1.37 ug/mIFEU (0-0.59) H 07/31/22 05:32 Sodium 138 mmol/L (136-145) 07/31/22 05:32 Potassium 3.7 mmol/L (3.5-5.1) 07/31/22 05:32 Chloride 100 mmol/L (98-107) 07/31/22 05:32 Carbon Dioxide 26 mmol/L (22-29) 07/31/22 05:32 Anion Gap 15.7 (5-19) 07/31/22 05:32 BUN 15 mg/dL (8-23) 07/31/22 05:32 Creatinine 1.0 mg/dL (0.7-1.2) 07/31/22 05:32 GFR Calculation Not Reportable 07/31/22 05:32 Glucose 86 mg/dL (65-115) 07/31/22 05:32 POC Glucose 116 mg/dL (70-110) H 07/30/22 17:09 Calculated Osmolality 286 mOsm/kg (285-295) 07/31/22 05:32 Calcium 9.2 mg/dL (8.5-10.5) 07/31/22 05:32 Magnesium 2.0 mg/dL (1.7-2.3) 07/30/22 16:47 Troponin T Baseline 36 ng/L (0-15) H 07/30/22 16:47 Troponin T 120 Minute 33.45 ng/L (0-15) H 07/30/22 18:46 Delta Troponin T -2.55 ABS# (0-10) L 07/30/22 18:46 Troponin T Hi Sens 6Hr 32.17 ng/L (0-15) H 07/30/22 22:25 Troponin T Hi Sens 6Hr Delta -3.83 ng/L (0-12) L 07/30/22 22:25 NT-Pro-B Natriuret Pep 9504 pg/mL (0-450) H 07/30/22 18:46 TSH 3.44 uIU/mL (0.27-4.20) 07/30/22 16:47 Prolactin 8.68 ng/mL (4.0-15.2) 07/31/22 05:32 Urine Color Yellow (Yellow) 07/30/22 17:14 Urine Appearance Clear (CLEAR) 07/30/22 17:14 Urine pH 7 (5-7) 07/30/22 17:14 Ur Specific [place] 1.010 (1.005-1.030) 07/30/22 17:14 Urine Protein Neg (Negative) 07/30/22 17:14 Urine Glucose (UA) Norm (Normal) 07/30/22 17:14 Urine Ketones Negative (Negative) 07/30/22 17:14 Urine Blood Neg (Negative) 07/30/22 17:14 Urine Nitrate Negative (Negative) 07/30/22 17:14 Urine Bilirubin Neg (Negative) 07/30/22 17:14 Urine Urobilinogen Neg mg/dL (Negative) 07/30/22 17:14 Ur Leukocyte Esterase Negative (Negative) 07/30/22 17:14 Urine RBC None /hpf (0-2) 07/30/22 17:14 Urine WBC None /hpf (0-5) 07/30/22 17:14 Ur Squamous Epith Cells None /hpf (0-5) 07/30/22 17:14 Amorphous Sediment Trace /hpf 07/30/22 17:14 Urine Bacteria None /hpf (NONE) 07/30/22 17:14 Hyaline Casts Rare /lpf 07/30/22 17:14 Vitals Last Vital Signs Temp 97.8 F 07/31/22 03:30 Pulse 61 07/31/22 08:00 Resp 16 07/31/22 08:00 BP 121/69 07/31/22 08:00 Pulse Ox 94 07/31/22 08:00 O2 Del Method 07/31/22 03:30 Discharge Plan Discharge Patient Disposition: Home Condition: Stable Prescriptions: New pyridostigmine bromide 60 mg Tablet 30 mg PO BID Qty: 60 2RF Continued potassium chloride 20 mEq tablet,ER particles/crystals 20 meq PO QAM aspirin 81 mg tablet,delayed release (DR/EC) 81 mg PO QAM furosemide 40 mg tablet 40 mg PO QAM hydroxyzine HCl 25 mg tablet 25 mg PO BEDTIME multivitamin Tablet 1 tab PO DAILY acetaminophen 500 mg Tablet 1,000 mg PO Q6H PRN (Reason: Pain) atorvastatin 40 mg tablet 40 mg PO DAILY Qty: 30 0RF Held tamsulosin 0.4 mg capsule 0.4 mg PO DAILY Hold Instructions: Resume on 08/03/22. Discontinued carvedilol 25 mg tablet 25 mg PO BID Rx Instructions: must administer with a meal/food clopidogrel 75 mg tablet 75 mg PO DAILY Qty: 30 0RF Discharge Orders: Discharge Order (Routine); Ordered 07/31/22 Ordered By: Will Boggs Referrals: Bro Adrian MD [Primary Care Provider] - 08/02/22 1:15 pm Patient Instructions: Pyridostigmine [place] (By mouth) (Mestinon, Mestinon Timespan), Stroke (GEN), Opioid Safety, Stroke Stoplight, TIA Discharge Attestations Time Spent in Discharge Care*: less than 30 min Quality Metrics Clinical Quality Measures [ No reported AMI, CVA or VTE this stay] Coding Level of Care Code Acute Code for Chg Fwd Diagnoses Syncope R55 Syncope type: unspecified CAD (coronary artery disease) I25.10 Hx of heart bypass surgery Z95.1 HFrEF (heart failure with reduced ejection fraction) I50.20 Essential hypertension I10 Severe pulmonary hypertension I27.20
[2022-07-31 12:50] LABS: Vitamin B12 541 pg/mL (232-1245)
[2022-07-31 14:00] VITALS: BP 100/69; BP 115/85; PULSE 61
== END 2022-07-31 14:59 | disposition home or self-care (01) ==
LOC: ER 19:58 → MEDSURG 20:32
PROVIDERS: Admitting Provider Internal Medicine; Emergency Provider Family Medicine; PCP Family Medicine; Visit Provider Internal Medicine
DX: R55 Syncope and collapse (principal); I25.10 Atherosclerotic heart disease of native coronary artery without angina pectoris; I65.22 Occlusion and stenosis of left carotid artery; Z95.1 Presence of aortocoronary bypass graft; I11.0 Hypertensive heart disease with heart failure; I50.20 Unspecified systolic (congestive) heart failure; I27.20 Pulmonary hypertension, unspecified; Z79.82 Long term (current) use of aspirin; F17.210 Nicotine dependence, cigarettes, uncomplicated
CPT/HCPCS: 36415; 36416; 70450; 71045; 71275; 80048; 81001; 82607; 82962; 83735; 83880; 84146; 84443; 84484; 85025; 85378; 93005; 93880; 96372; 96374; 97161; 99285; G0378; J1650; J1940; Q9967

== ENCOUNTER → 2022-09-18 11:30 | Outpatient (BNVA) | payer MEDICARE, OTHER, SELFPAY | PROVIDERS: PCP Family Medicine; Visit Provider Surgery | DX: Z98.890 Other specified postprocedural states (principal); Z87.19 Personal history of other diseases of the digestive system | CPT/HCPCS: 99024 ==

== ENCOUNTER → 2022-10-17 13:29 | Outpatient (BNVA) | payer MEDICARE, OTHER, SELFPAY | PROVIDERS: PCP Family Medicine; Visit Provider Internal Medicine | DX: I11.0 Hypertensive heart disease with heart failure (principal); I50.23 Acute on chronic systolic (congestive) heart failure; I25.10 Atherosclerotic heart disease of native coronary artery without angina pectoris; Z95.1 Presence of aortocoronary bypass graft; F17.200 Nicotine dependence, unspecified, uncomplicated | CPT/HCPCS: 99215 ==

== ENCOUNTER 2022-10-18 09:30 | Inpatient (IN) | payer MEDICARE, OTHER, SELFPAY ==
[2022-10-18 09:52] VITALS: BP 155/96; PULSE 96; RESP 19; TEMP 36.6; O2SAT 93; BMI 31.6
--- NOTE | 2022-10-18 10:12 | XR_ITS ---
WS: [id number] Portable AP upright chest, 10/18/2022 Clinical Data: SHORTNESS OF BREATH Comparison: Portable chest, 07/30/2022 Findings: There is a patchy opacity in the retrocardiac region and an opacity at the left costophreni c angle which could represent effusion, atelectasis and/or pneumonia. The diaphragms are flattened. T he heart is enlarged. No pneumothorax is seen. The pulmonary vascularity is not increased. The aortic arch and descending thoracic aorta show calcification and tortuosity. There are midline sternotomy s utures and mediastinal clips. XR/XR chest 1V portable [id number] Impression: 1. Minimal patchy opacity in retrocardiac region along with blunting of the lef t costophrenic angle. 2. Cardiomegaly and atherosclerosis.
--- NOTE | 2022-10-18 10:13 | USCV_ITS ---
IsabellAung Age: 81 Gender: M : 1940 Exam Date: 10/18/2022 11:18 Ordering Phys: Dony Pringle M.D ([email or web address]) Technologist: Rahul Hargrove Exam Location[place] [facility] [place] Indication: sob BP: 126 / 73 HR: 89 Rhythm: Sinus Technical Quality: Adequate MEASUREMENTS (Male / Female) Normal Values 2D ECHO LVOT Diameter 2.1 cm LV Ejection Fraction MOD 2C 22.0 % LV Ejection Fraction 2C AL 22.4 % LA Diameter 4.3 cm Aorta at Sinotubular Diameter 3.0 cm M-MODE Aortic Annulus Diameter 3.8 cm LA Ao Ratio MM 1.1 MV E Point Septal Separation 3.2 cm FINDINGS Left Ventricle Right Ventricle Right Atrium Left Atrium Mitral Valve Aortic Valve Tricuspid Valve Pulmonic Valve Pericardium Aorta IVC CONCLUSIONS This is a limited echocardiogram performed to assess LV systolic function. LV systolic function is severely reduced with EF of 20 to 25%. Severe global hypokinesis seen. Compared to prior echocardiogram from 03/2022, no significant changes are seen. Dony Pringle MD (Electronically Signed) Final Date: 18 Oct 2022 17:54 S
--- NOTE | 2022-10-18 10:14 | PM.HP ---
Providers/Chief Complaint Admitting Physician: Dony Pringle M.D Primary Care Provider: Bro Adrian MD Chief Complaint: Fluid Volume Overload History of Present Illness Aung Whyte is a 81 year old male with past medical history of CAD with CABG, congestive heart failure with EF of 20 to 25% was seen yesterday in the office. He was having worsening shortness of breath. He has gained about 20 to 30 pounds of weight in the last 2 months. Significant lower extremity edema and abdominal distention. He was advised to go to the emergency room however he did not want to go to ER. We have admitted him for IV diuresis. He denies any chest pain. Recent stress test did not show ischemia. 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 Review of Systems General: Reports: 10 or more systems reviewed and unremarkable except in HPI and below Const: Denies: fever(s), chills or body aches Eyes: Denies: change in vision, blurry vision or photophobia ENMT: Reports: hoarseness; Denies: throat pain, enlarged tonsils, odynophagia or nasal congestion Card: Reports: swelling of feet/ankles and dyspnea on exertion; Denies: chest pain, palpitations, irregular heart rhythm, edema, lightheadedness, pre-syncope or orthopnea Resp: Denies: dyspnea, productive cough, non-productive cough, wheezing, stridor, pain on inspiration, change in phlegm color, hemoptysis or chest congestion GI: Denies: abdominal pain, nausea, vomiting, hematemesis, coffee ground emesis, dysphagia, heartburn, diarrhea, constipation, GI cramping, change in stool character, hematochezia or melena : Denies: flank pain, dysuria, urinary frequency, urinary urgency, urinary hesitancy or hematuria Musc: Denies: neck pain, back pain, extremity pain, joint swelling, joint warmth or deformity Neuro: Denies: headache(s), numbness in extremities, weakness in extremities, sensory changes, difficulty walking, frequent falls, dizziness, vertigo, behavioral changes, Slurred speech present or seizure-like activity Psych: Denies: anxiety, depression, suicidal ideation or homicidal ideation Endo: Denies: polyuria, polydipsia, tired all the time, cold intolerance or hot flashes Francis/Lymph: Denies: easy bruising or easy bleeding Medications/Allergies Home Medications Medication Instructions Recorded Confirmed Last Taken Type aspirin 81 mg tablet,delayed 81 mg PO QAM 04/10/22 10/17/22 07/30/22 History release tamsulosin 0.4 mg capsule 0.4 mg PO DAILY 04/10/22 10/17/22 07/08/22 History potassium chloride 20 mEq 20 meq PO QAM 06/20/22 10/17/22 07/26/22 History tablet,extended release(part/cryst) acetaminophen 500 mg tablet 1,000 mg PO Q6H PRN Pain 07/26/22 10/17/22 Unknown History atorvastatin 40 mg tablet 40 mg PO DAILY #30 tabs 07/26/22 10/17/22 07/30/21 Rx furosemide 40 mg tablet 40 mg PO QAM 07/26/22 10/17/22 07/30/22 History hydroxyzine HCl 25 mg tablet 25 mg PO BEDTIME itching 07/26/22 10/17/22 07/22/22 History see pharmacy comment multivitamin 1 tab PO DAILY 07/26/22 10/17/22 Unknown History Allergies Allergy/AdvReac Type Severity Reaction Status Date / Time No Known Allergies Allergy Verified 09/18/22 11:35 PFSH Acute PFSH: Medical History CAD (coronary artery disease) CHF (congestive heart failure) Contusion of scalp Essential hypertension HFrEF (heart failure with reduced ejection fraction) Pulmonary edema Severe pulmonary hypertension Syncope Surgical History History of umbilical hernia repair Hx of heart bypass surgery No significant past surgical history Social History Smoking and tobacco status: current some day smoker Alcohol intake: never Vitals/I&O/Wt Last Vital Signs Temp 98 F 10/18/22 09:52 Pulse 96 10/18/22 09:52 Resp 19 H 10/18/22 09:52 BP 155/96 10/18/22 09:52 Pulse Ox 93 10/18/22 09:52 O2 Del Method Room Air 10/18/22 09:52 Weight last 48 hrs Weight 184 lb 9.6 oz Weight 184 lb 9.6 oz Physical Exam Narrative: GENERAL: Patient is alert, awake and oriented x3. [] NECK: No jugular vein distension. [] HEENT: No cyanosis. No icterus. No pallor. [] HEART: Regular S1 and S2. No murmur, rub or gallop. [] LUNGS: Has bilateral crackles. ABDOMEN: Distended. CENTRAL NERVOUS SYSTEM: Grossly nonfocal. [] EXTREMITIES: Lower extremities with 1+ edema bilaterally. Data 10/18/22 10:19 10/19/22 05:18 A&P Assessment and plan (1) CAD (coronary artery disease): (2) Essential hypertension: (3) CHF exacerbation: Plan Patient has congestive heart failure exacerbation. We will initiate Lasix 80 mg twice daily. Monitor renal function. Close I&O's. Low-sodium diet. We will obtain limited echocardiogram. We will initiate beta blockers and losartan. Can be switched to enteresto as outpatient Attestations Medical Necessity Statement*: Care expected to cross 2 midnights. Coding Level of Care Code Acute Code for g Fwd Diagnoses CAD (coronary artery disease) I25.10 Essential hypertension I10 CHF exacerbation I50.9
[2022-10-18 10:33] LABS: Basophils % 0.4 %; Eosinophils # 0.2 10^3/uL (0.0-0.8); Eosinophils % 2.4 %; Hematocrit 42.6 % (42.0-52.0); Hemoglobin 13.1 g/dL (11.7-16.6); Lymphocytes # 0.9 10^3/uL (0.8-4.8); Lymphocytes % 12.9 %; Mean Corpuscular HGB Conc 30.8 g/dL (30.0-36.0); Mean Corpuscular Hemoglobin 27.1 pg (28.0-34.0); Monocytes # 0.8 10^3/uL (0.2-0.9); Monocytes % 11.7 %; Neutrophils # 5.04 10^3/uL (1.8-7.7); Neutrophils % 72.3 %; Nucleated Red Blood Cells % 0 %; Platelet Count 153 10^3/cmm (130-400); Red Blood Count 4.84 10^6/uL (4.1-5.3); Red Cell Distribution Width 15.5 % (12.1-15.1)
[2022-10-18] MEDS: enoxaparin 40 mg/0.4 mL Syringe SUBCUT (10:41)
[2022-10-18] MEDS: FUROsemide 10 mg/mL SDV 10mL 80 MG IVP ×2 (10:42→21:08)
[2022-10-18 11:10] LABS: Alanine Aminotransferase 26 U/L (0-41); Albumin Level 3.6 g/dL (3.5-5.2); Alkaline Phosphatase 109 U/L (40-130); Anion Gap 12.3 (5-19); Aspartate Amino Transferase 25 U/L (0-40); Blood Urea Nitrogen 24 mg/dL (8-23); Calcium 9.2 mg/dL (8.5-10.5); Carbon Dioxide 28 mmol/L (22-29); Chloride 107 mmol/L (98-107); Globulin 2.9 g/dL (1.3-4.6); Glucose 130 mg/dL (65-115); NT Pro B Type Natriuretic Pept 3809 pg/mL (0-450); Osmolality Calculated 302 mOsm/kg (285-295); Potassium 4.3 mmol/L (3.5-5.1); Sodium 143 mmol/L (136-145); Total Bilirubin 1.1 mg/dL (0.15-1.2); Total Protein 6.5 g/dL (6.6-8.7)
[2022-10-18 11:55] VITALS: BP 146/90; PULSE 89; RESP 18; TEMP 36.5; O2SAT 94
[2022-10-18 15:36] VITALS: BP 147/89; PULSE 87; RESP 15; TEMP 36.7; O2SAT 91
--- NOTE | 2022-10-18 17:23 | PM.CONSULT ---
Providers/Reason For Consult Consulting Physician/Specialty*: Latesha Tovar/ Hospitalist Reason for Consult*: medical management Attending Physician: Dony Pringle M.D Primary Care Provider: Bro Adrian MD History of Present Illness History of Present Illness Aung Whyte is a 81 year old male with past medical history of CAD s/p CABG , hypertension, CHF , last known EF 20%. 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 He is short of breath.,CXR shows left side pleural effusion and cardiomegaly. Stress test from 06/2022 showed Abnormal myocardial perfusion imaging with large sized infarct noted in LAD, RCA and left circumflex artery territories.? Minimal lucas-infarct ischemia seen in LAD and RCA territory. Patient has been having worsening dyspnea and lower extremity edema since April of last year. He finally established with cardiology as outpatient earlier this year where he was found to have EF of 20%. He was admitted to the hospital in July 2022 with recurrent episodes of syncope. He was found to have orthostatic hypotension on this admission. It appears Flomax was held at this discharge And carvedilol 25 mg twice daily was discontinued. Plavix was also discontinued. does not recall if patient has ever been on any PRUDENCIO or ARB. Not aware of any underlying arrhythmias during the events of syncope. states he has had multiple similar episodes, currently has been asymptomatic in this regard for the last month. Denies any recent fever chills nausea vomiting cough expectoration. Review of Systems General: Reports: 10 or more systems reviewed and unremarkable except in HPI and below Const: Denies: fever(s), chills or body aches Eyes: Denies: change in vision, blurry vision or photophobia ENMT: Reports: hoarseness; Denies: throat pain, enlarged tonsils, odynophagia or nasal congestion Card: Denies: chest pain, palpitations, irregular heart rhythm, edema, swelling of feet/ankles, lightheadedness, pre-syncope, dyspnea on exertion or orthopnea Resp: Denies: dyspnea, productive cough, non-productive cough, wheezing, stridor, pain on inspiration, change in phlegm color, hemoptysis or chest congestion GI: Denies: abdominal pain, nausea, vomiting, hematemesis, coffee ground emesis, dysphagia, heartburn, diarrhea, constipation, GI cramping, change in stool character, hematochezia or melena : Denies: flank pain, dysuria, urinary frequency, urinary urgency, urinary hesitancy or hematuria Musc: Denies: neck pain, back pain, extremity pain, joint swelling, joint warmth or deformity Neuro: Denies: headache(s), numbness in extremities, weakness in extremities, sensory changes, difficulty walking, frequent falls, dizziness, vertigo, behavioral changes, Slurred speech present or seizure-like activity Psych: Denies: anxiety, depression, suicidal ideation or homicidal ideation Endo: Denies: polyuria, polydipsia, tired all the time, cold intolerance or hot flashes Francis/Lymph: Denies: easy bruising or easy bleeding Medications/Allergies Home Medications Medication Instructions Recorded Confirmed Last Taken Type aspirin 81 mg tablet,delayed 81 mg PO QAM 04/10/22 10/17/22 07/30/22 History release tamsulosin 0.4 mg capsule 0.4 mg PO DAILY 04/10/22 10/17/22 07/08/22 History potassium chloride 20 mEq 20 meq PO QAM 06/20/22 10/17/22 07/26/22 History tablet,extended release(part/cryst) acetaminophen 500 mg tablet 1,000 mg PO Q6H PRN Pain 07/26/22 10/17/22 Unknown History atorvastatin 40 mg tablet 40 mg PO DAILY #30 tabs 07/26/22 10/17/22 07/30/21 Rx furosemide 40 mg tablet 40 mg PO QAM 07/26/22 10/17/22 07/30/22 History hydroxyzine HCl 25 mg tablet 25 mg PO BEDTIME itching 07/26/22 10/17/22 07/22/22 History see pharmacy comment multivitamin 1 tab PO DAILY 07/26/22 10/17/22 Unknown History Allergies Allergy/AdvReac Type Severity Reaction Status Date / Time No Known Allergies Allergy Verified 09/18/22 11:35 Current Medications Generic Name Dose Route Start Last Admin Trade Name Freq PRN Reason Stop Dose Admin Enoxaparin Sodium 40 mg 10/18/22 10:00 10/18/22 10:41 Enoxaparin 40 Mg/0.4 Ml Syringe SUBCUT 40 mg Q24H JE Administration Furosemide 80 mg 10/18/22 10:00 10/18/22 10:42 Furosemide 10 Mg/Ml Sdv 10ml IVP 80 mg Q12H JE Administration PFSH Acute PFSH: Medical History CAD (coronary artery disease) CHF (congestive heart failure) Contusion of scalp Essential hypertension HFrEF (heart failure with reduced ejection fraction) Pulmonary edema Severe pulmonary hypertension Syncope Surgical History History of umbilical hernia repair Hx of heart bypass surgery No significant past surgical history Social History Smoking and tobacco status: current some day smoker Alcohol intake: never Vitals/I&O/Wt Last Vital Signs Temp 98.0 F 10/18/22 15:36 Pulse 87 10/18/22 15:36 Resp 15 10/18/22 15:36 BP 147/89 10/18/22 15:36 Pulse Ox 91 10/18/22 15:36 O2 Del Method Room Air 10/18/22 15:36 10/18/22 10/18/22 10/18/22 06:59 14:59 22:59 Intake Total 240 / 240 Balance 240 / 240 Weight last 48 hrs Weight 83.733 kg Weight 83.733 kg Physical Exam Narrative: General: No acute distress, AO x3 HEENT: PERRLA, pupils bilaterally equal and reactive, pallors not present Chest: Normal vesicular breath sounds, no added sounds, equal good air entry bilaterally CVS: S1-S2 regular, no murmurs, no tachycardia, no gallops, no rubs Abdomen: Soft, nontender, no organomegaly, bowel sounds present Neuro: No focal deficits, no facial deformity, AO x3, power 5/5 in all limbs EXT: Data 10/18/22 10:19 10/18/22 10:19 A&P Assessment and plan (1) CHF exacerbation: - Acute on chronic systolic heart failure - Currently on lasix 80 mg iv q12h - monitor I/O , renal function -Currently on room air. - Chest x-ray shows left sided pleural effusion. -Beta-blockers were discontinued on his admission in July 2022 when he presented with syncope and fall at home. -Check orthostatics on the current admission. Blood pressure permitting patient may need to be restarted on beta-blockers. -Telemetry monitoring for any underlying arrhythmias leading to syncopal episodes. -Optimization of heart failure medications per cardiology. Coding Level of Care Code Acute Code for [facility] Fwd Diagnoses CHF exacerbation I50.9
[2022-10-18 19:15] VITALS: BP 148/95; PULSE 91; RESP 23; TEMP 36.6; O2SAT 99
[2022-10-18 22:00] VITALS: PULSE 88
[2022-10-19] VITALS (7 sets, daily range): BP systolic 115–137; BP diastolic 69–86; PULSE 61–85; RESP 15–25; TEMP 36.4–36.7; O2SAT 92–96
[2022-10-19 01:28] LABS: Blood Urea Nitrogen 23 mg/dL (8-23); Calcium 9.7 mg/dL (8.5-10.5); Carbon Dioxide 28 mmol/L (22-29); Chloride 106 mmol/L (98-107); Glucose 94 mg/dL (65-115); Osmolality Calculated 303 mOsm/kg (285-295); Sodium 145 mmol/L (136-145)
[2022-10-19 05:57] LABS: Blood Urea Nitrogen 22 mg/dL (8-23); Calcium 9.7 mg/dL (8.5-10.5); Carbon Dioxide 23 mmol/L (22-29); Chloride 106 mmol/L (98-107); Glucose 84 mg/dL (65-115); Osmolality Calculated 299 mOsm/kg (285-295); Sodium 143 mmol/L (136-145)
[2022-10-19 05:59] LABS: Anion Gap 17.8 (5-19); Potassium 3.8 mmol/L (3.5-5.1)
[2022-10-19] MEDS: aspirin 81 mg EC Tablet PO (06:05)
--- NOTE | 2022-10-19 08:08 | PC.PHAR ---
pts states she takes care of the pts medications-pts delicia states the pts heart dr cartwrightd his flomax 0.4mg daily on sat10/17/22 ext med history shows last filled 07/24/22 90d/s-pts states the pt is no longer taking mestinon 60mg take 30mg bid filled 30d/s-coreg 25mg bid filled 07/24/22 90d/s-plavix 75mg daily filled 07/27/22 30d/s-or norco 5-325mg 1 tab po q4-6h prn filled 09/25/22 3d/s-
[2022-10-19] MEDS: FUROsemide 10 mg/mL SDV 10mL 80 MG IVP ×2 (08:36→22:22)
[2022-10-19] MEDS: tamsulosin 0.4 mg Capsule PO (08:36)
[2022-10-19] MEDS: atorvastatin 40 mg Tablet PO (08:36)
[2022-10-19] MEDS: enoxaparin 40 mg/0.4 mL Syringe SUBCUT (08:37)
--- NOTE | 2022-10-19 08:38 | PM.PN ---
Subjective Subjective: Patient is feeling much better. He is diuresing well. He has lost about 6 pounds weight since yesterday. Vitals/I&O/Wt Last Vital Signs Temp 98.1 F 10/19/22 03:51 Pulse 84 10/19/22 03:51 Resp 25 H 10/19/22 03:51 BP 126/80 10/19/22 03:51 Pulse Ox 94 10/19/22 03:51 O2 Del Method Room Air 10/19/22 03:51 10/18/22 10/19/22 10/19/22 22:59 06:59 14:59 Intake Total 240 / 480 Output Total 200 / 200 Balance 40 / 280 Weight last 48 hrs Weight 178 lb 3.2 oz Weight 184 lb 9.6 oz Weight 184 lb 9.6 oz Physical Exam Narrative: GENERAL: Patient is alert, awake and oriented x3. [] NECK: No jugular vein distension. [] HEENT: No cyanosis. No icterus. No pallor. [] HEART: Regular S1 and S2. No murmur, rub or gallop. [] LUNGS: Has bilateral crackles. ABDOMEN: Distended. CENTRAL NERVOUS SYSTEM: Grossly nonfocal. [] EXTREMITIES: Lower extremities with 1+ edema bilaterally. Data 10/18/22 10:19 10/19/22 05:18 A&P Assessment and plan (1) CAD (coronary artery disease): (2) Essential hypertension: (3) CHF exacerbation: Plan Patient is diuresing well. Continue Lasix 80 mg twice a day. Close renal function monitoring and I/O's. Echo shows severely reduced LV systolic function of 20%. Echo is unchanged from before. Coreg 6.25 mg twice daily started. We will start losartan if blood pressure tolerates. Hospitalist team consulted for medical management. Appreciate recs. Attestations Medical Necessity Statement*: Care expected to cross 2 midnights. Coding Level of Care Code Acute Code for [facility] Diagnoses CAD (coronary artery disease) I25.10 Essential hypertension I10 CHF exacerbation I50.9
--- NOTE | 2022-10-19 10:07 | PC.CHAP ---
Pastoral Care Encounter/Spiritual Assessment Type of Contact [] Declined multiple resaw operator visit [] Patient/Family/Request visit [] Outpatient visit [] Follow-up visit [] Physician referral [] Code/Alert [x] Routine visit [] Staff referral [] Actively dying [] Patient sleeping [x] Family support [] [] Out of room [] Palliative care [] [] Receiving care in room [] Pre-surgical visit [] Trauma [] Long length of stay [] ICU visit [] Other: Relational/Emotional Strength [x] Patient feels connected with others/family/visitors/staff [] Distress [] Loneliness/isolation [] Abandonment Spirituality of Patient [x] Person of Briana [] Attends Orthodox of their Briana [x] Believes in Prayer [] Reads Bible or Hindu materials [] There are Spiritual issues to be addressed Cdl Driver Interventions [x] Prayer [] Active listening [] Non-anxious presence [] Spiritual/emotional support [] Crisis/trauma care [] Spiritual counseling [] Bereavement support [] Provided bereavement packet [] Provided Bible/devotional materials [] Provided toy/stuffed animal, coloring book to patient or family member [] Provided Communion [] Anointing/[place] [] Salvation [x] Completed spiritual assessment [] Other: Impact on Illness or Injury [] Angry [] Fearful [] Anxious [] Often cries [] Exhaustion [] Unable to work [] Unable to attend judaism [] Unable to walk/stand [] Unable to read [] Unable to drive [] Unable to eat/drink [] Unable to sleep [] Unable to be with family [] Patient intubated [] Other: Summary Time spent with patient 5 min
[2022-10-19] MEDS: carvedilol 6.25 mg Tablet PO ×2 (10:34→17:16)
[2022-10-20] VITALS (9 sets, daily range): BP systolic 103–145; BP diastolic 58–84; PULSE 57–77; RESP 15–18; TEMP 36.5–36.8; O2SAT 90–96
[2022-10-20] MEDS: aspirin 81 mg EC Tablet PO (06:41)
[2022-10-20] MEDS: FUROsemide 10 mg/mL SDV 10mL 80 MG IVP ×2 (08:56→20:11)
[2022-10-20] MEDS: carvedilol 6.25 mg Tablet PO ×2 (08:56→17:30)
[2022-10-20] MEDS: atorvastatin 40 mg Tablet PO (08:56)
[2022-10-20] MEDS: enoxaparin 40 mg/0.4 mL Syringe SUBCUT (08:56)
[2022-10-20] MEDS: tamsulosin 0.4 mg Capsule PO (08:56)
--- NOTE | 2022-10-20 08:59 | PM.PN ---
Subjective Subjective: Aung feels as though he is improving however he still short of breath. He remains on intravenous Lasix 80 mg twice daily, carvedilol, aspirin and statin. An afterload reducing agent has not yet been added back due to his blood pressure. Today his blood pressure is 145/84. He is anxious to go home however it is clear that he is still volume overloaded. When 1 looks at his intake and output he is still volume positive since arrival. Vitals/I&O/Wt Last Vital Signs Temp 97.7 F 10/20/22 08:00 Pulse 77 10/20/22 08:00 Resp 16 10/20/22 08:00 BP 145/84 10/20/22 08:00 Pulse Ox 90 10/20/22 08:00 O2 Del Method Room Air 10/20/22 08:00 10/19/22 10/20/22 10/20/22 22:59 06:59 14:59 Intake Total 240 / 900 Output Total 200 / 200 Balance 240 / 900 -200 / 700 Weight last 48 hrs Weight 178 lb 3.2 oz Weight 184 lb 9.6 oz Weight 184 lb 9.6 oz Physical Exam Narrative: GENERAL: In general he is comfortable at rest sitting up but is short of breath HEENT: Exam within normal limits. NECK: Supple without jugular vein distention. The carotid upstroke is normal without bruits. BACK: Exam normal. LUNGS: Clear. Moist rales in both bases HEART: Regular rate and rhythm. ABDOMEN: Benign without organomegaly or tenderness. EXTREMITIES: No edema. NEUROLOGIC: Exam normal. SKIN: Unremarkable. Data 10/18/22 10:19 10/19/22 05:18 A&P Assessment and plan (1) CAD (coronary artery disease): (2) Essential hypertension: (3) CHF exacerbation: (4) Hx of heart bypass surgery: (5) Ischemic cardiomyopathy: (6) Carotid stenosis: Plan He still needs more diuresis. We will continue with the intravenous Lasix. I will add back low-dose losartan. Attestations Medical Necessity Statement*: Needs continued hospitalization for management of congestive heart failure. and Moderate Time for a total of 30 minutes, includes reviewing past or interval history, examining/interviewing patient, placing orders, counseling patient/family/other support, updating patient/family/other support, discussing plan of care with staff, communicating with other healthcare providers, documenting encounter and coordinating care Diagnoses CAD (coronary artery disease) I25.10 Essential hypertension I10 CHF exacerbation I50.9 Hx of heart bypass surgery Z95.1 Ischemic cardiomyopathy I25.5 Carotid stenosis I65.29
[2022-10-20] MEDS: losartan 50 mg Tablet 25 MG PO (09:46)
[2022-10-20 12:20] LABS: Anion Gap 15.5 (5-19); Blood Urea Nitrogen 26 mg/dL (8-23); Calcium 8.9 mg/dL (8.5-10.5); Carbon Dioxide 25 mmol/L (22-29); Chloride 105 mmol/L (98-107); Glucose 104 mg/dL (65-115); Osmolality Calculated 299 mOsm/kg (285-295); Potassium 3.5 mmol/L (3.5-5.1); Sodium 142 mmol/L (136-145)
[2022-10-21] VITALS (10 sets, daily range): BP systolic 104–144; BP diastolic 62–87; PULSE 55–75; RESP 16–24; TEMP 36.3–36.9; O2SAT 90–98
[2022-10-21 05:10] LABS: Blood Urea Nitrogen 26 mg/dL (8-23); Calcium 9.1 mg/dL (8.5-10.5); Carbon Dioxide 26 mmol/L (22-29); Chloride 102 mmol/L (98-107); Glucose 98 mg/dL (65-115); Osmolality Calculated 297 mOsm/kg (285-295); Sodium 141 mmol/L (136-145)
[2022-10-21] MEDS: aspirin 81 mg EC Tablet PO (06:18)
[2022-10-21] MEDS: FUROsemide 10 mg/mL SDV 10mL 80 MG IVP ×2 (08:17→19:58)
[2022-10-21] MEDS: losartan 50 mg Tablet 25 MG PO (08:20)
[2022-10-21] MEDS: tamsulosin 0.4 mg Capsule PO (08:20)
[2022-10-21] MEDS: atorvastatin 40 mg Tablet PO (08:20)
[2022-10-21] MEDS: carvedilol 6.25 mg Tablet PO ×2 (08:20→17:19)
--- NOTE | 2022-10-21 09:00 | P.PN_ITS ---
Subjective Subjective: Aung is about the same. He has virtually made no urine output overnight. Still short of breath. Moderate lower extremity edema. Vitals/I&O/Wt Last Vital Signs Temp 98.0 F 10/21/22 07:16 Pulse 63 10/21/22 07:16 Resp 17 10/21/22 07:16 BP 131/78 10/21/22 08:20 Pulse Ox 90 10/21/22 07:16 O2 Del Method Room Air 10/21/22 04:00 10/20/22 10/21/22 10/21/22 22:59 06:59 14:59 Intake Total 480 / 840 Balance 480 / 840 Weight last 48 hrs Weight 178 lb 14.4 oz Physical Exam Narrative: GENERAL: In general he is comfortable but mildly short of breath at rest HEENT: Exam within normal limits. NECK: Supple without jugular vein distention. The carotid upstroke is normal without bruits. BACK: Exam normal. LUNGS: Moist rales in the bases. HEART: Regular rate and rhythm. ABDOMEN: Benign without organomegaly or tenderness. EXTREMITIES: 2+ lower extremity edema NEUROLOGIC: Exam normal. SKIN: Unremarkable. Data 10/18/22 10:19 10/21/22 04:04 A&P Assessment and plan (1) Carotid stenosis: (2) Ischemic cardiomyopathy: (3) Hx of heart bypass surgery: (4) CAD (coronary artery disease): (5) Essential hypertension: (6) CHF exacerbation: (7) ATN (acute tubular necrosis): Plan Today am going to give him some metolazone. I am going to hold the losartan. If that does not work I would put him on a Bumex drip. His creatinine is up to 1.3 today. Attestations Medical Necessity Statement*: Continued hospital stay for management of heart failure and renal insufficiency. and Moderate Time for a total of 25 minutes, includes reviewing past or interval history, examining/interviewing patient, placing orders, counseling patient/family/other support, updating patient/family/other support, discussing plan of care with staff, communicating with other healthcare providers, doc umenting encounter and coordinating care Diagnoses Carotid stenosis I65.29 Ischemic cardiomyopathy I25.5 Hx of heart bypass surgery Z95.1 CAD (coronary artery disease) I25.10 Essential hypertension I10 CHF exacerbation I50.9 ATN (acute tubular necrosis) N17.0
[2022-10-21] MEDS: metOLazone 5 MG Tablet PO (09:58)
[2022-10-21] MEDS: enoxaparin 40 mg/0.4 mL Syringe SUBCUT (09:59)
--- NOTE | 2022-10-21 10:22 | PC.SOCIAL ---
IMM Update pg 2 of IMM updated and reviewed w/ patient and his . Copy provided and copy dated, initialed and placed in chart.
[2022-10-22] VITALS (10 sets, daily range): BP systolic 108–146; BP diastolic 51–80; PULSE 55–61; RESP 15–22; TEMP 36.3–36.7; O2SAT 91–98
--- NOTE | 2022-10-22 02:25 | PC.NURSE ---
Pt had a 15 beat run of v-tach on telemetry. Immediately assessed pt, patient found resting in bed, eyes closed, with even respirations. Woke patient and rechecked vitals, HR 57, RR 20, BP 125/70, saturation 96% on room air. Pt did not complain of any chest pain or other symptoms. Notified Dr. Solano via telephone at [phone], received orders to check BMP and magnesium during routine morning labs.
[2022-10-22] MEDS: aspirin 81 mg EC Tablet PO (05:43)
[2022-10-22 05:48] LABS: Anion Gap 15.7 (5-19); Blood Urea Nitrogen 28 mg/dL (8-23); Calcium 9.5 mg/dL (8.5-10.5); Carbon Dioxide 29 mmol/L (22-29); Chloride 96 mmol/L (98-107); Glucose 90 mg/dL (65-115); Magnesium 1.9 mg/dL (1.7-2.3); Osmolality Calculated 291 mOsm/kg (285-295); Sodium 138 mmol/L (136-145)
[2022-10-22 06:00] LABS: Potassium 2.7 mmol/L (3.5-5.1)
[2022-10-22] MEDS: lidocaine 1% 5 ML in potassium chloride premix 100 ML 26.25 ML IV (07:04)
--- NOTE | 2022-10-22 07:43 | PM.PN ---
Subjective Subjective: Patient is feeling better. Potassium is low. Breathing has improved significantly. Vitals/I&O/Wt Last Vital Signs Temp 97.7 F 10/22/22 04:00 Pulse 59 L 10/22/22 06:37 Resp 15 10/22/22 04:00 BP 128/73 10/22/22 04:00 Pulse Ox 96 10/22/22 04:00 O2 Del Method Room Air 10/22/22 04:00 10/21/22 10/22/22 10/22/22 22:59 06:59 14:59 Intake Total 240 / 480 Output Total 950 / 2350 2700 / 5050 Balance -710 / -1870 -2700 / -4570 Weight last 48 hrs Weight 178 lb 14.4 oz Physical Exam Narrative: GENERAL: Patient is alert, awake and oriented x3. [] NECK: No jugular vein distension. [] HEENT: No cyanosis. No icterus. No pallor. [] HEART: Regular S1 and S2. No murmur, rub or gallop. [] LUNGS: Lungs are clear bilaterally ABDOMEN: Distended. CENTRAL NERVOUS SYSTEM: Grossly nonfocal. [] EXTREMITIES: Lower extremities with 1+ edema bilaterally. Data 10/18/22 10:19 10/22/22 14:03 A&P Assessment and plan (1) CAD (coronary artery disease): (2) Essential hypertension: (3) CHF exacerbation: Plan Patient is diuresing well on Lasix 80 mg IV twice daily and metolazone 5 mg daily. Close I&O's. Patient is getting potassium replacement. We will repeat BMP in the evening. Patient wants to go home however if needs further potassium replacement or worsening of renal function, will plan on keeping him inpatient today. Continue coreg. Will resume losartan Hospitalist team consulted for medical management. Appreciate recs. Attestations Medical Necessity Statement*: Care expected to cross 2 midnights. Coding Level of Care Code Acute Code for [facility] Diagnoses CAD (coronary artery disease) I25.10 Essential hypertension I10 CHF exacerbation I50.9
[2022-10-22] MEDS: acetaminophen 500 mg Tablet 1000 MG PO (08:11)
[2022-10-22] MEDS: carvedilol 6.25 mg Tablet PO ×2 (08:12→17:51)
[2022-10-22] MEDS: metOLazone 5 MG Tablet PO (08:12)
[2022-10-22] MEDS: atorvastatin 40 mg Tablet PO (08:12)
[2022-10-22] MEDS: tamsulosin 0.4 mg Capsule PO (08:12)
[2022-10-22] MEDS: FUROsemide 10 mg/mL SDV 10mL 80 MG IVP ×2 (08:22→20:42)
[2022-10-22] MEDS: enoxaparin 40 mg/0.4 mL Syringe SUBCUT (09:46)
[2022-10-22] MEDS: potassium chloride ER 20 mEq Tablet 40 MEQ PO (10:00)
[2022-10-22 14:30] LABS: Anion Gap 13.9 (5-19); Blood Urea Nitrogen 28 mg/dL (8-23); Calcium 9.6 mg/dL (8.5-10.5); Carbon Dioxide 33 mmol/L (22-29); Chloride 95 mmol/L (98-107); Glucose 148 mg/dL (65-115); Osmolality Calculated 296 mOsm/kg (285-295); Sodium 139 mmol/L (136-145)
[2022-10-22 14:34] LABS: Potassium 2.9 mmol/L (3.5-5.1)
--- NOTE | 2022-10-22 15:15 | PM.PN ---
Subjective Subjective: Patient was seen and examined this morning shortness of breath is significantly improved, robust urine output in the last 24 hours, with slightly uptrending BUN and serum creatinine, bilateral lower extremity swelling has gone down. Medications: Medication Review Details: Generic Name Dose Route Start Last Admin Trade Name Andreiq PRN Reason Stop Dose Admin Acetaminophen 1,000 mg 10/18/22 17:21 10/22/22 08:11 Acetaminophen 50 0 Mg Tablet PO 1,000 mg Q8H PRN Administration Pain Aspirin 81 mg 10/19/22 06:00 10/22/22 05:43 Aspirin 81 Mg Ec Tablet PO 81 mg QAM JE Administration Atorvastatin Calci um 40 mg 10/19/22 09:00 10/22/22 08:12 Atorvastatin 40 Mg Tablet PO 40 mg DAILY JE Administration Carvedilol 6.25 mg 10/19/22 09:00 10/22/22 08:12 Carvedilol 6.25 Mg Tablet PO 6.25 mg BID JE Administration Enoxaparin Sodium 40 mg 10/18/22 10:00 10/22/22 09:46 Enoxaparin 40 Mg /0.4 Ml Syringe SUBCUT 40 mg Q24H JE Administration Furosemide 80 mg 10/19/22 07:00 10/22/22 08:22 Furosemide 10 Mg /Ml Sdv 10ml IVP 80 mg Q12H JE Administration Losartan Potassium 25 mg 10/20/22 09:30 10/21/22 08:20 Losartan 50 Mg T ablet PO 25 mg DAILY JE Administration Metolazone 5 mg 10/21/22 09:15 10/22/22 08:12 Metolazone 5 Mg Tablet PO 5 mg DAILY JE Administration Tamsulosin HCl 0.4 mg 10/19/22 09:00 10/22/22 08:12 Tamsulosin 0.4 M g Capsule PO 0.4 mg DAILY JE Administration Vitals/I&O/Wt Last Vital Signs Temp 98.1 F 10/22/22 12:00 Pulse 55 L 10/22/22 12:00 Resp 18 10/22/22 12:00 BP 113/51 10/22/22 12:00 Pulse Ox 96 10/22/22 12:00 O2 Del Method Room Air 10/22/22 12:00 10/22/22 10/22/22 10/22/22 06:59 14:59 22:59 Intake Total 600 / 600 105 / 705 Output Total 3125 / 5775 525 / 525 Balance -3125 / -5295 75 / 75 105 / 180 Weight last 48 hrs Weight 81.148 kg Physical Exam Const: COMMON NORMALS: patient oriented x3 HENMT: COMMON NORMALS: normocephalic and atraumatic HEAD & SCALP: normocephalic and atraumatic Resp: COMMON NORMALS: clear to auscultation bilaterally AUSCULTATION: clear to auscultation bilaterally Cardio: COMMON NORMALS: regular rate, regular rhythm, S1 normal heart sound present, S2 normal heart sound present, No gallops present (Cardio), No murmurs present (Cardio), No rub (Cardio) and Peripheral pulses 2+ throughout RATE: regular rate RHYTHM: regular rhythm HEART SOUNDS: S1 normal heart sound present and S2 normal heart sound present PERIPHERAL PULSES: Peripheral pulses 2+ throughout GI: COMMON NORMALS: Normal to inspection, nondistended, normoactive bowel sounds present, Soft to palpation, non-tender, No hepatosplenomegaly present and no masses AUSCULTATION: Yes normoactive bowel sounds PALPATION: Yes Soft to palpation and Yes No hepatosplenomegaly present RECTAL EXAM: Yes deferred Extremity: COMMON NORMALS: no clubbing, cyanosis or edema and no pedal edema Neuro: COMMON NORMALS: patient oriented x3 Data 10/18/22 10:19 10/22/22 14:03 A&P Assessment and plan (1) CHF exacerbation: - Acute on chronic systolic heart failure - Currently on lasix 80 mg iv q12h - monitor I/O , renal function -Currently on room air. - Chest x-ray shows left sided pleural effusion. -Beta-blockers were discontinued on his admission in July 2022 when he presented with syncope and fall at home. -Check orthostatics on the current admission. Blood pressure permitting patient may need to be restarted on beta-blockers. -Telemetry monitoring for any underlying arrhythmias leading to syncopal episodes. -Optimization of heart failure medications per cardiology. Attestations Medical Necessity Statement*: Is to be in hospital for management of heart failure IV diuresis. Coding Level of Care Code Acute Code for [facility] Diagnoses CHF exacerbation I50.9
[2022-10-23] VITALS (8 sets, daily range): BP systolic 105–131; BP diastolic 59–76; PULSE 56–76; RESP 15–17; TEMP 36.4–36.6; O2SAT 94–96
[2022-10-23] MEDS: aspirin 81 mg EC Tablet PO (05:24)
[2022-10-23 07:53] LABS: Blood Urea Nitrogen 29 mg/dL (8-23); Calcium 9.4 mg/dL (8.5-10.5); Carbon Dioxide 34 mmol/L (22-29); Chloride 95 mmol/L (98-107); Glucose 89 mg/dL (65-115); Osmolality Calculated 293 mOsm/kg (285-295); Sodium 139 mmol/L (136-145)
[2022-10-23 08:00] LABS: Anion Gap 13.1 (5-19); Potassium 3.1 mmol/L (3.5-5.1)
[2022-10-23] MEDS: metOLazone 5 MG Tablet 2.5 MG PO (08:23)
[2022-10-23] MEDS: tamsulosin 0.4 mg Capsule PO (08:23)
[2022-10-23] MEDS: carvedilol 6.25 mg Tablet PO ×2 (08:24→17:56)
[2022-10-23] MEDS: atorvastatin 40 mg Tablet PO (08:24)
[2022-10-23] MEDS: FUROsemide 40 mg Tablet PO ×2 (08:29→15:24)
--- NOTE | 2022-10-23 09:36 | PM.DCS ---
Discharge Providers Date of Admission: 10/18/22 09:30 Date of Discharge: October 23, 2022 Attending Provider at Admission: Dony Pringle M.D Attending Provider at Discharge: Dony Pringle M.D Consults: Dr Tovar Primary Care Provider: Bro Adrian MD Diagnoses at Discharge Discharge Diagnosis (1) CAD (coronary artery disease): Status: Acute (2) Essential hypertension: Status: Acute (3) CHF exacerbation: Status: Inactive Reason for Visit Reason for Visit: Fluid Volume Overload Brief History: 81 year old male with past medical history of CAD with CABG, congestive heart failure with EF of 20 to 25% was seen yesterday in the office.? He was having worsening shortness of breath.? He has gained about 20 to 30 pounds of weight in the last 2 months.? Significant lower extremity edema and abdominal distention.? He was advised to go to the emergency room however he did not want to go to ER.? We have admitted him for IV diuresis.? He denies any chest pain.? Recent stress test did not show ischemia.? 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 Hospital Course Hospital Course Patient stayed in the hospital and underwent aggressive IV diuresis. He is shortness of breath improved and edema also was better. At time of discharge he was sent home on 40 mg twice daily of Lasix. He was also sent on metolazone 2.5 mg daily. Coreg and losartan also started. Patient also advised to keep daily weight log and on any day weight goes above 2 pounds, to take additional dose of Lasix. We will also obtain BMP as outpatient. Physical Exam Narrative: GENERAL: Patient is alert, awake and oriented x3. [] NECK: No jugular vein distension. [] HEENT: No cyanosis. No icterus. No pallor. [] HEART: Regular S1 and S2. No murmur, rub or gallop. [] LUNGS: Lungs are clear bilaterally ABDOMEN: Distended. CENTRAL NERVOUS SYSTEM: Grossly nonfocal. [] EXTREMITIES: Lower extremities with 1+ edema bilaterally. Discharge Data Studies Completed and Pending Completed Studies During Hospitalization Category Date Time Status XR chest 1V portable [id number] Urgent Exams 10/18/22 10:12 Completed CV. echo limited [id number] Urgent Ultrasound 10/18/22 10:13 Completed Radiology Impressions Chest X-Ray 10/18/22 10:12 Impression: 1. Minimal patchy opacity in retrocardiac region along with blunting of the left costophrenic angle. 2. Cardiomegaly and atherosclerosis. Laboratory Results WBC 7.0 10^3/uL (4.0-10.0) 10/18/22 10:19 RBC 4.84 10^6/uL (4.1-5.3) 10/18/22 10:19 Hgb 13.1 g/dL (11.7-16.6) 10/18/22 10:19 Hct 42.6 % (42.0-52.0) 10/18/22 10:19 MCV 88.0 fl (80-94) 10/18/22 10:19 MCH 27.1 pg (28.0-34.0) L 10/18/22 10:19 MCHC 30.8 g/dL (30.0-36.0) 10/18/22 10:19 RDW 15.5 % (12.1-15.1) H 10/18/22 10:19 Plt Count 153 10^3/cmm (130-400) 10/18/22 10:19 MPV 10.0 fL (7.4-10.4) 10/18/22 10:19 Neut % (Auto) 72.3 % 10/18/22 10:19 Lymph % (Auto) 12.9 % 10/18/22 10:19 [place] % (Auto) 11.7 % 10/18/22 10:19 Eos % (Auto) 2.4 % 10/18/22 10:19 Baso % (Auto) 0.4 % 10/18/22 10:19 Neut # (Auto) 5.04 10^3/uL (1.8-7.7) 10/18/22 10:19 Lymph # (Auto) 0.9 10^3/uL (0.8-4.8) 10/18/22 10:19 [place] # (Auto) 0.8 10^3/uL (0.2-0.9) 10/18/22 10:19 Eos # (Auto) 0.2 10^3/uL (0.0-0.8) 10/18/22 10:19 Baso # (Auto) 0.0 10^3/uL (0.0-0.1) 10/18/22 10:19 Nucleated RBC % (auto) 0 % 10/18/22 10:19 Nucleated RBCs # 0.0 /100WBC 10/18/22 10:19 Sodium 139 mmol/L (136-145) 10/23/22 07:01 Potassium 3.1 mmol/L (3.5-5.1) L 10/23/22 07:01 Chloride 95 mmol/L (98-107) L 10/23/22 07:01 Carbon Dioxide 34 mmol/L (22-29) H 10/23/22 07:01 Anion Gap 13.1 (5-19) 10/23/22 07:01 BUN 29 mg/dL (8-23) H 10/23/22 07:01 Creatinine 1.3 mg/dL (0.7-1.2) H 10/23/22 07:01 GFR Calculation Not Reportable 10/23/22 07:01 Glucose 89 mg/dL (65-115) 10/23/22 07:01 Calculated Osmolality 293 mOsm/kg (285-295) 10/23/22 07:01 Calcium 9.4 mg/dL (8.5-10.5) 10/23/22 07:01 Magnesium 1.9 mg/dL (1.7-2.3) 10/22/22 05:14 Total Bilirubin 1.1 mg/dL (0.15-1.2) 10/18/22 10:19 AST 25 U/L (0-40) 10/18/22 10:19 ALT 26 U/L (0-41) 10/18/22 10:19 Alkaline Phosphatase 109 U/L (40-130) 10/18/22 10:19 NT-Pro-B Natriuret Pep 3809 pg/mL (0-450) H 10/18/22 10:19 Total Protein 6.5 g/dL (6.6-8.7) L 10/18/22 10:19 Albumin 3.6 g/dL (3.5-5.2) 10/18/22 10:19 Globulin 2.9 g/dL (1.3-4.6) 10/18/22 10:19 Vitals Last Vital Signs Temp 97.9 F 10/23/22 07:26 Pulse 61 10/23/22 07:26 Resp 15 10/23/22 07:26 BP 131/73 10/23/22 07:26 Pulse Ox 94 10/23/22 07:26 O2 Del Method Room Air 10/23/22 07:26 Discharge Plan Discharge Patient Disposition: Home Condition: Stable Prescriptions: New losartan 50 mg Tablet 25 mg PO DAILY Qty: 60 2RF carvedilol 6.25 mg Tablet 6.25 mg PO BID Qty: 120 3RF tamsulosin 0.4 mg Capsule 0.4 mg PO DAILY Qty: 60 0RF metolazone 5 mg Tablet 2.5 mg PO DAILY Qty: 60 2RF Hold Instructions: Doctor's Order Continued aspirin 81 mg tablet,delayed release (DR/EC) 81 mg PO QAM acetaminophen 500 mg Tablet 1,000 mg PO Q6H PRN (Reason: Pain) atorvastatin 40 mg tablet 40 mg PO DAILY Qty: 30 0RF Changed furosemide 40 mg tablet 40 mg PO BID Qty: 60 2RF potassium chloride 20 mEq tablet,ER particles/crystals 20 meq PO BID Qty: 120 0RF No Action trazodone 50 mg tablet 50 mg PO BEDTIME PRN (Reason: insomnia) multivitamin Tablet 1 tab PO QAM PRN Discharge Orders: Discharge Order (Routine); Ordered 10/23/22 Ordered By: Dony Pringle Other Ambulatory Orders: Basic Metabolic Panel (Routine) Timeframe: 20221026 Facility: [facility] - Location: Lab - Main Lab Ordered By: Dony Pringle Referrals: Bro Adrian MD [Primary Care Provider] - 10/26/22 9:45 am Dony Pringle M.D [Physician] - 2 months (Appointment will be given at the time of seeing Esha Mckinney) Esha Mckinney FNP [Nurse Practitioner] - 10/30/22 2:15 pm Discharge Diet: Cardiac and Low Salt Discharge Activity: Increase activity as tolerated Patient Instructions: Metolazone (By mouth), Losartan (By mouth), Tamsulosin (By mouth), Carvedilol (By mouth), Heart Failure (GEN), CHF Stoplight, Opioid Safety Discharge Attestations Time Spent in Discharge Care*: greater than 30 min Quality Metrics Clinical Quality Measures [ No reported AMI, CVA or VTE this stay] Coding Level of Care Code Acute Code for [facility] Diagnoses CAD (coronary artery disease) I25.10 Essential hypertension I10 CHF exacerbation I50.9
[2022-10-23] MEDS: potassium chloride ER 20 mEq Tablet 40 MEQ PO (10:01)
[2022-10-23] MEDS: enoxaparin 40 mg/0.4 mL Syringe SUBCUT (10:01)
[2022-10-23] MEDS: lidocaine 1% 5 ML in potassium chloride premix 100 ML 26.25 ML IV (10:02)
--- NOTE | 2022-10-23 10:57 | PC.SOCIAL ---
IMM Update pg 2 of IMM updated and reviewed w/ patient and his . Copy provided and Copy in chart dated, and initialed.
--- NOTE | 2022-10-23 13:14 | PM.PN ---
Subjective Subjective: Patient was seen and examined this morning shortness of breath is significantly improved, hypokalemia correction has been undertaken. Medications: Medication Review Details: Generic Name Dose Route Start Last Admin Trade Name Brent PRN Reason Stop Dose Admin Acetaminophen 1,000 mg 10/18/22 17:21 10/22/22 08:11 Acetaminophen 50 0 Mg Tablet PO 1,000 mg Q8H PRN Administration Pain Aspirin 81 mg 10/19/22 06:00 10/23/22 05:24 Aspirin 81 Mg Ec Tablet PO 81 mg QAM JE Administration Atorvastatin Calci um 40 mg 10/19/22 09:00 10/23/22 08:24 Atorvastatin 40 Mg Tablet PO 40 mg DAILY JE Administration Carvedilol 6.25 mg 10/19/22 09:00 10/23/22 08:24 Carvedilol 6.25 Mg Tablet PO 6.25 mg BID JE Administration Enoxaparin Sodium 40 mg 10/18/22 10:00 10/23/22 10:01 Enoxaparin 40 Mg /0.4 Ml Syringe SUBCUT 40 mg Q24H JE Administration Furosemide 40 mg 10/23/22 08:00 10/23/22 08:29 Furosemide 40 Mg Tablet PO 40 mg BID@08,16 JE Administration Lidocaine HCl 5 ml / Potassium 105 mls @ 26.25 m ls/hr 10/23/22 09:30 10/23/22 10:02 Chloride IV 10/23/22 13:29 26.25 mls/hr ONCE ONE Administration Losartan Potassium 25 mg 10/20/22 09:30 10/21/22 08:20 Losartan 50 Mg T ablet PO 25 mg DAILY JE Administration Metolazone 2.5 mg 10/23/22 09:00 10/23/22 08:23 Metolazone 5 Mg Tablet PO 2.5 mg DAILY JE Administration Tamsulosin HCl 0.4 mg 10/19/22 09:00 10/23/22 08:23 Tamsulosin 0.4 M g Capsule PO 0.4 mg DAILY JE Administration Vitals/I&O/Wt Last Vital Signs Temp 97.8 F 10/23/22 11:52 Pulse 76 10/23/22 11:52 Resp 16 10/23/22 11:52 BP 105/59 10/23/22 11:52 Pulse Ox 95 10/23/22 11:52 O2 Del Method Room Air 10/23/22 11:52 10/22/22 10/23/22 10/23/22 22:59 06:59 14:59 Intake Total 225 / 825 Output Total 3225 / 3750 1400 / 5150 400 / 400 Balance -3000 / -2925 -1400 / -4325 -400 / -400 Weight last 48 hrs Weight 68.039 kg Physical Exam Const: COMMON NORMALS: patient oriented x3 HENMT: COMMON NORMALS: normocephalic and atraumatic HEAD & SCALP: normocephalic and atraumatic Resp: COMMON NORMALS: clear to auscultation bilaterally AUSCULTATION: clear to auscultation bilaterally Cardio: COMMON NORMALS: regular rate, regular rhythm, S1 normal heart sound present, S2 normal heart sound present, No gallops present (Cardio), No murmurs present (Cardio), No rub (Cardio) and Peripheral pulses 2+ throughout RATE: regular rate RHYTHM: regular rhythm HEART SOUNDS: S1 normal heart sound present and S2 normal heart sound present PERIPHERAL PULSES: Peripheral pulses 2+ throughout GI: COMMON NORMALS: Normal to inspection, nondistended, normoactive bowel sounds present, Soft to palpation, non-tender, No hepatosplenomegaly present and no masses AUSCULTATION: Yes normoactive bowel sounds PALPATION: Yes Soft to palpation and Yes No hepatosplenomegaly present RECTAL EXAM: Yes deferred Extremity: COMMON NORMALS: no clubbing, cyanosis or edema and no pedal edema Neuro: COMMON NORMALS: patient oriented x3 Data 10/18/22 10:19 10/23/22 07:01 A&P Assessment and plan (1) CHF exacerbation: - Acute on chronic systolic heart failure - Currently on lasix 80 mg iv q12h - monitor I/O , renal function -Currently on room air. - Chest x-ray shows left sided pleural effusion. -Beta-blockers were discontinued on his admission in July 2022 when he presented with syncope and fall at home. -Check orthostatics on the current admission. Blood pressure permitting patient may need to be restarted on beta-blockers. -Telemetry monitoring for any underlying arrhythmias leading to syncopal episodes. -Optimization of heart failure medications per cardiology. Attestations Medical Necessity Statement*: Per primary team Coding Level of Care Code Acute Code for [facility] Diagnoses CHF exacerbation I50.9
--- NOTE | 2022-10-23 19:50 | PC.NURSE ---
Pt left via wheelchair at 19:45 and was brought down to leave in private vehicle accompanied by his . All questions have been answered and personal belongings left with the pt at time of discharge.
== END 2022-10-23 19:45 | disposition home or self-care (01) | DRG 291 ==
PROVIDERS: Family Medicine; Admitting Provider Internal Medicine; PCP Family Medicine; Visit Provider Internal Medicine
DX: I11.0 Hypertensive heart disease with heart failure (principal); I50.23 Acute on chronic systolic (congestive) heart failure; N17.9 Acute kidney failure, unspecified; E87.6 Hypokalemia; I25.10 Atherosclerotic heart disease of native coronary artery without angina pectoris; Z95.1 Presence of aortocoronary bypass graft; Z79.82 Long term (current) use of aspirin; Z79.891 Long term (current) use of opiate analgesic; I27.20 Pulmonary hypertension, unspecified; F17.200 Nicotine dependence, unspecified, uncomplicated; I25.2 Old myocardial infarction; I25.5 Ischemic cardiomyopathy
CPT/HCPCS: 36415; 71045; 80048; 80053; 83735; 83880; 85025; 92610; 93308; 96372; 99215; J1650; J1940; J3480

== ENCOUNTER → 2022-10-30 14:16 | Outpatient (BNVA) | payer MEDICARE, OTHER, SELFPAY | PROVIDERS: PCP Family Medicine; Visit Provider Nurse Practitioner Family | DX: I11.0 Hypertensive heart disease with heart failure (principal); I50.23 Acute on chronic systolic (congestive) heart failure; F17.200 Nicotine dependence, unspecified, uncomplicated | CPT/HCPCS: 99214 ==

== ENCOUNTER → 2022-11-13 12:53 | Outpatient (BNVA) | payer MEDICARE, OTHER, SELFPAY | PROVIDERS: PCP Family Medicine; Visit Provider Nurse Practitioner Family | DX: I50.20 Unspecified systolic (congestive) heart failure (principal) | CPT/HCPCS: 99214 ==

== ENCOUNTER 2022-11-21 11:30 | Outpatient (CLI) | payer MEDICARE, OTHER, SELFPAY ==
[2022-11-21 12:23] LABS: Anion Gap 11.9 (5-19); Blood Urea Nitrogen 21 mg/dL (8-23); Calcium 9.5 mg/dL (8.5-10.5); Carbon Dioxide 29 mmol/L (22-29); Chloride 102 mmol/L (98-107); Glucose 98 mg/dL (65-115); NT Pro B Type Natriuretic Pept 3372 pg/mL (0-450); Osmolality Calculated 291 mOsm/kg (285-295); Potassium 3.9 mmol/L (3.5-5.1); Sodium 139 mmol/L (136-145)
== END 2022-11-21 11:31 | disposition home or self-care (01) ==
LOC: LAB 11:37
PROVIDERS: PCP Family Medicine; Visit Provider Nurse Practitioner Family
DX: I50.20 Unspecified systolic (congestive) heart failure (principal)
CPT/HCPCS: 36415; 80048; 83880

== ENCOUNTER → 2022-12-03 13:27 | Outpatient (BNVA) | payer MEDICARE, OTHER, SELFPAY | PROVIDERS: PCP Family Medicine; Visit Provider Nurse Practitioner Family | DX: I11.0 Hypertensive heart disease with heart failure (principal); I50.20 Unspecified systolic (congestive) heart failure; F17.200 Nicotine dependence, unspecified, uncomplicated; I25.10 Atherosclerotic heart disease of native coronary artery without angina pectoris | CPT/HCPCS: 36415; 80048; 83880; 85025; 99214 ==

== ENCOUNTER → 2023-03-04 12:46 | Outpatient (BNVA) | payer MEDICARE, OTHER, SELFPAY | PROVIDERS: PCP Family Medicine; Visit Provider Internal Medicine | DX: I11.0 Hypertensive heart disease with heart failure (principal); I50.20 Unspecified systolic (congestive) heart failure; I25.10 Atherosclerotic heart disease of native coronary artery without angina pectoris; Z95.1 Presence of aortocoronary bypass graft; F17.200 Nicotine dependence, unspecified, uncomplicated | CPT/HCPCS: 99214 ==

== ENCOUNTER → 2023-09-02 15:07 | Outpatient (BNVA) | payer MEDICARE, OTHER, SELFPAY | PROVIDERS: PCP Family Medicine; Visit Provider Internal Medicine | DX: I11.0 Hypertensive heart disease with heart failure (principal); I50.20 Unspecified systolic (congestive) heart failure; I25.10 Atherosclerotic heart disease of native coronary artery without angina pectoris; Z95.1 Presence of aortocoronary bypass graft; F17.200 Nicotine dependence, unspecified, uncomplicated | CPT/HCPCS: 99214 ==

== ENCOUNTER 2024-01-21 10:27 | Outpatient (CLI) | payer MEDICARE, OTHER, SELFPAY ==
[2024-01-21 11:15] LABS: Blood Urea Nitrogen 20 mg/dL (8-23); Calcium 9.5 mg/dL (8.5-10.5); Carbon Dioxide 25 mmol/L (22-29); Chloride 102 mmol/L (98-107); Glucose 200 mg/dL (65-115); NT Pro B Type Natriuretic Pept 1208 pg/mL (0-450); Osmolality Calculated 294 mOsm/kg (285-295); Sodium 138 mmol/L (136-145)
== END 2024-01-21 10:28 | disposition home or self-care (01) ==
LOC: LAB 10:29
PROVIDERS: PCP Family Medicine; Visit Provider Internal Medicine
DX: I50.20 Unspecified systolic (congestive) heart failure (principal); I11.0 Hypertensive heart disease with heart failure
CPT/HCPCS: 36415; 80048; 83880

== ENCOUNTER → 2024-03-04 10:54 | Outpatient (BNVA) | payer MEDICARE, OTHER, SELFPAY | PROVIDERS: PCP Family Medicine; Visit Provider Internal Medicine | DX: I25.10 Atherosclerotic heart disease of native coronary artery without angina pectoris (principal); I11.0 Hypertensive heart disease with heart failure; I50.20 Unspecified systolic (congestive) heart failure; Z95.1 Presence of aortocoronary bypass graft | CPT/HCPCS: 99214 ==

== ENCOUNTER → 2024-09-02 12:23 | Outpatient (BNVA) | payer MEDICARE, OTHER, SELFPAY | PROVIDERS: PCP Family Medicine; Visit Provider Internal Medicine | DX: I50.20 Unspecified systolic (congestive) heart failure (principal); I25.10 Atherosclerotic heart disease of native coronary artery without angina pectoris; Z95.1 Presence of aortocoronary bypass graft; I50.9 Heart failure, unspecified; I10 Essential (primary) hypertension | CPT/HCPCS: 99213 ==

== ENCOUNTER → 2025-03-10 13:00 | Outpatient (BNVA) | payer MEDICARE, OTHER, SELFPAY | PROVIDERS: PCP Family Medicine; Visit Provider Internal Medicine | DX: I25.10 Atherosclerotic heart disease of native coronary artery without angina pectoris (principal); I11.0 Hypertensive heart disease with heart failure; I50.20 Unspecified systolic (congestive) heart failure; Z95.1 Presence of aortocoronary bypass graft; Z72.0 Tobacco use | CPT/HCPCS: 99214 ==